=== PATIENT | male | born 1930 | race Caucasian/White ===

== ENCOUNTER 2018-06-05 14:37 | Outpatient (CLI) | payer MEDICARE ==
--- NOTE | 2018-06-05 15:30 | RAD ---
THREE VIEWS RIGHT SHOULDER: INDICATION: Right shoulder pain. COMPARISON: None. FINDINGS: There is narrowing of the acromiohumeral interval with postsurgical change of a prior rotator cuff re pair. There is mild AC joint osteoarthrosis. There are calcified granuloma within the right upper l obe. There is diffuse osteopenia. IMPRESSION: 1. Findings suspicious for rotator cuff insufficiency. 2. Suture anchors of the right humeral head consistent with prior rotator cuff repair. 3. Mild acromioclavicular joint osteoarthrosis. 4. Findings of prior granulomatous disease. POS: TPC
== END 2018-06-05 14:38 | disposition home or self-care (01) ==
LOC: BICRAD 14:37
PROVIDERS: ATTEND Family Medicine
DX: M25.511 Pain in right shoulder (principal); M19.011 Primary osteoarthritis, right shoulder
CPT/HCPCS: 36415; 82043; 83036; 84439; 84443; 84481; 84550; 85025

== ENCOUNTER 2019-02-24 12:14 | Inpatient (IN) | payer MEDICARE ==
[2019-02-24 13:36] LABS: #Monocytes 1.2 thou/uL (0.11-0.59); #Neutrophils 12.9 thou/uL (1.40-6.50); %Eosinophils 0.3 % (0.0-10.0); %Lymphocytes 6.5 % (21.0-51.0); %Monocytes 7.9 % (0.0-10.0); %Neutrophils 85.3 % (42.0-75.0); Hemoglobin 10.9 g/dL (14.0-18.0); Mean Corpuscular HGB CONC 33.5 g/dL (32.0-36.0); Mean Corpuscular Hemoglobin 33.8 pg (27.0-31.0); Mean Platelet Volume 7.9 fL (7.4-10.4); Platelet Count 249 thou/uL (130-400); RBC Distribution Width 12.7 % (11.5-14.5); Red Blood Cell (RBC) Count 3.23 mill/uL (4.70-6.10); White Blood Cell (WBC) Count 15.1 thou/uL (4.8-10.8)
--- NOTE | 2019-02-24 13:38 | RAD ---
RADIOGRAPH CHEST 1 VIEW: DATE: 02/24/2019 TIME: 1:31 PM HISTORY: 88-year-old male with anorexia COMPARISON: 06/22/2016 FINDINGS: New finding of almost total opacification of the right hemithoracic cavity, except for sparing of a s mall portion of the right lung apex. New finding of displacement of trachea, mediastinum, and heart to the left. Prominent interstitial markings in left mid and lower lung zones. Left lung apex clear. No pneumothorax visualized. IMPRESSION: Very large right pleural effusion displacing the heart and mediastinum to the left.
[2019-02-24 14:05] LABS: ALT (SGPT) Less than 7 U/L (8-55); AST (SGOT) 18 U/L (5-34); Alkaline Phosphatase 97 U/L (40-150); Anion Gap 13 mmol/L (10-20); BUN (Urea Nitrogen) 17 mg/dL (8.4-25.7); Bilirubin, Total 0.7 mg/dL (0.2-1.2); CK (CPK) 49 U/L (30-200); Calc. Creatinine Clearance 0 mL/min (70-130); Calcium 8.9 mg/dL (7.8-10.44); Carbon Dioxide 28 mmol/L (23-31); Chloride 91 mmol/L (98-107); Estimated GFR-MDRD Greater than 90; Globulin 2.7 g/dL (2.4-3.5); Glucose 163 mg/dL (83-110); Lipase Less than 4 U/L (8-78); Protein, Total 5.7 g/dL (5.8-8.1); Sodium 128 mmol/L (136-145)
[2019-02-24 14:47] LABS: Bilirubin Negative (Negative); Blood, Urine 2+ (Negative); Clarity Clear (Clear); Glucose, Urine (Dipstick) Normal (Negative); Leukocyte 250 Leu/uL (Negative); Nitrite Negative (Negative); Protein, Urine (Dipstick) 20 mg/dL (Neg-Trace); Squamous Epithelial 0-3 HPF (0-3); Urobilinogen Normal mg/dL (Less than 2); WBC/HPF 21-50 HPF (0-3)
[2019-02-24 14:54] LABS: Bacteria/HPF 1+ HPF (None Seen)
[2019-02-24] MEDS ORDERED: Furosemide 20 MG/2 ML VIAL ONE (15:43)
[2019-02-24] MEDS ORDERED: Nitroglycerin 2% Ointment 1 INCH/1 GM Packet ONE (15:43)
[2019-02-24] MEDS ORDERED: Heparin 1,000 UNITS/ML VIAL ONE (17:09)
--- NOTE | 2019-02-24 17:26 | RAD ---
Frontal radiograph chest 02/24/2019 5:01 PM COMPARISON: 02/24/2019 1:31 PM HISTORY: Evaluate chest following right-sided thoracentesis FINDINGS: No pneumothorax is noted on either side. There is dense opacity in the mid and lower right hemithorax, secondary to prominent pleural effusion with associated nonspecific parenchymal opacity. Pleural fluid has decreased since the prior examination consistent with interval right-sided thoracentesis. Questionable small nodules are noted within the left lung base laterally which could signify granulom lee ann or small pulmonary nodules. Granulomata are suspected within the right lung apex. IMPRESSION: Interval right-sided thoracentesis with no evidence for pneumothorax. Significant persist ent dense pleural and peripheral opacity within the right hemithorax.
[2019-02-24 17:53] LABS: Fluid, Triglycerides 20 mg/dL (Not Available); Pleural Fluid, Amylase Less than 30 U/L (Not Available); Pleural Fluid, Glucose 105 mg/dL; Pleural Fluid, LDH 555 U/L (Not Available); Pleural Fluid, Protein 3.8 g/dL
[2019-02-24 17:54] LABS: BF Color Red; Body Fluid Source Thoracentesis Fluid; Clarity Cloudy/Turbid (Clear); RBC Background Count 0.002; Tube # EDTA; WBC/Nucleated-Auto (BF) 1090 /cumm
[2019-02-24 17:55] LABS: RBC Count-Automated (BF) 84000 /cumm
[2019-02-24 18:49] LABS: BF Segmented Neutrophils 16 %; Cell Count Non Hematic 63 %; Lymphocytes 21 %
[2019-02-24] MEDS ORDERED: Acetaminophen 650 MG Suppository PR PRN (18:54)
[2019-02-24] MEDS ORDERED: Acetaminophen 325 MG TAB PO PRN (18:54)
[2019-02-24] MEDS ORDERED: Bisacodyl 5 MG TAB PO PRN (18:54)
[2019-02-24] MEDS ORDERED: Dextrose 5% in Water 1,000 ML IV PRN (19:44)
[2019-02-24] MEDS ORDERED: Dextrose 50% Abboject 50 ML SYRINGE SLOW IVP PRN (19:44)
--- NOTE | 2019-02-24 20:20 | HP ---
PRIMARY CARE PROVIDER: Dr. Mary Seals. CHIEF COMPLAINT: Generalized weakness. HISTORY OF PRESENT ILLNESS: Mr. Hernandez is a pleasant 88-year-old gentleman, who was seen at [facility] on February 24, 2019. He reports that over the last couple of weeks, he has been having difficulty urinating. He also reports weight gain. He denies any chest pain. He also reports shortness of breath and abdominal discomfort. He had a cough that was evaluated by his primary care provider 2 weeks ago. Today, he attempted to go to primary care provider's office for re-evaluation; however, he was unable to get into the car. 911 was called and the patient was brought to the emergency room. In the emergency room, the patient was found to have a large right-sided pleural effusion. He was referred to Hospitalist Service for admission. REVIEW OF SYSTEMS: All systems were reviewed and found to be negative except for the pertinent positives mentioned above. PAST MEDICAL HISTORY: Pneumonia, gout, hypothyroidism, esophageal stricture, hiatal hernia, benign prostate hypertrophy, dyslipidemia, hypertension, diabetes mellitus type 2. PAST SURGICAL HISTORY: Esophageal dilatation, cardiac stent, cholecystectomy, hernia repair, left rotator cuff repair. SOCIAL HISTORY: The patient denies tobacco use, alcohol use, or recreational drug use. FAMILY HISTORY: No family history of premature coronary artery disease. CODE STATUS: I discussed his code status. He is DNAR. ALLERGIES: ERYTHROMYCIN AND INFLUENZA VACCINE. CURRENT MEDICATIONS: Januvia 100 mg daily, benzonatate 100 mg every 8 hours as needed, allopurinol 100 mg daily, atorvastatin 10 mg daily. PHYSICAL EXAMINATION: GENERAL: Mr. Hernandez is awake and alert, not in acute distress. VITAL SIGNS: Blood pressure is 122/61, pulse 67, respiratory rate 18, and oxygen saturation 97% on room air. He is afebrile. EYES: No scleral icterus, no conjunctival pallor. ENT: Moist mucosal membranes. No oropharyngeal erythema or exudates. NECK: Supple, nontender. Trachea is midline. RESPIRATORY: Accessory muscles of breathing are not active. Chest wall movements are diminished over the right base. Breath sounds are absent over the right base, present on the left side. CARDIOVASCULAR: S1 and S2 are heard, regular. Peripheral pulses palpable. ABDOMEN: Soft, nontender. Bowel sounds are heard. NEUROLOGIC: Cranial nerves 2 through 12 intact. Deep tendon reflexes 2+, plantars downgoing bilaterally. SKIN: No rashes or subcutaneous nodules. PSYCHIATRIC: Normal mood, normal affect. The patient is oriented to person, place, and time. LABORATORY DATA: Mr. Hernandez's labs and investigations were reviewed. I reviewed his electrocardiogram, which shows sinus rhythm with first-degree AV block. I also reviewed his chest x-rays. Chest x-ray done at 1:16 p.m. showed a very large right pleural effusion, displacing the heart and the mediastinum to the left. Chest x-ray done at 4:38 p.m. showed no evidence for pneumothorax with interval right-sided thoracentesis. He has leukocytosis with 15,100 white cells, of which 85% are neutrophils; macrocytic anemia with hemoglobin 10.9; normal platelet count. Decreased sodium of 128, normal potassium, decreased albumin of 3.0. Unremarkable LFTs. Normal TSH. Normal cortisol. BNP mildly elevated at 118.7. Lactic acid is normal. Troponin I is less than 0.010. Urinalysis is positive for leukocyte esterase, negative for nitrite. ASSESSMENT AND PLAN: Mr. Hernandez is a pleasant 88-year-old gentleman, who was seen at [facility] on February 24, 2019. His problem list includes: 1. Generalized weakness: Appears to be secondary to a combination of large right-sided pleural effusion as well as urinary tract infection. He will be admitted to the hospital for further management. 2. Pleural effusion: The patient had thoracentesis by the bedside by Pulmonary and Critical Care Service. Follow labs for the pleural fluid. 3. Urinary tract infection: Start the patient on ceftriaxone, follow urine cultures. 4. Diabetes mellitus type 2: Start Accu-Cheks and insulin sliding scale. 5. Urinary retention: Urology Service has been consulted by emergency room physician. 6. Gout: Stable, continue allopurinol. 7. Dyslipidemia: Continue atorvastatin. Many thanks for allowing me to participate in your patient's care. Please feel free to contact me with any questions or concerns. LEVEL OF RISK: High. LEVEL OF COMPLEXITY: High. Job ID: [id number]
[2019-02-24] MEDS: cefTRIAXone\\ROCEPHIN 1 GM in Sodium Chloride 0.9% 100 ML IVPB SCH (21:05)
[2019-02-25] MEDS ORDERED: Benzonatate 100 MG CAP PO PRN (03:37)
[2019-02-25] MEDS ORDERED: Furosemide 40 MG TAB PO SCH (05:00)
[2019-02-25 07:02] LABS: #Eosinphils 0.1 thou/uL (0.0-0.7); #Lymphocytes 1.4 thou/uL (1.20-3.40); #Monocytes 1.4 thou/uL (0.11-0.59); #Neutrophils 15.5 thou/uL (1.40-6.50); %Basophils 0.2 % (0.0-1.0); %Eosinophils 0.4 % (0.0-10.0); %Lymphocytes 7.6 % (21.0-51.0); %Monocytes 7.7 % (0.0-10.0); Hemoglobin 9.3 g/dL (14.0-18.0); Mean Platelet Volume 8.1 fL (7.4-10.4); Platelet Count 239 thou/uL (130-400); RBC Distribution Width 12.7 % (11.5-14.5); Red Blood Cell (RBC) Count 2.73 mill/uL (4.70-6.10); White Blood Cell (WBC) Count 18.5 thou/uL (4.8-10.8)
[2019-02-25 07:14] LABS: Anion Gap 15 mmol/L (10-20); BUN (Urea Nitrogen) 15 mg/dL (8.4-25.7); Calc. Creatinine Clearance 69 mL/min (70-130); Calcium 8.1 mg/dL (7.8-10.44); Carbon Dioxide 24 mmol/L (23-31); Chloride 93 mmol/L (98-107); Estimated GFR-MDRD Greater than 90; Glucose 166 mg/dL (83-110); Sodium 128 mmol/L (136-145)
--- NOTE | 2019-02-25 07:16 | CON ---
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 He states that he has lost up to 150 pounds over the course of many years. He has never smoked. X-ray shows a large right pleural effusion and the reason for consult. He denies any previous history of pneumonia, TB, asthma. Denies any cough, wheezing, orthopnea, or PND. He sees a doctor locally, Dr. Seals. PAST MEDICAL HISTORY: Pertinent for otherwise diabetes, hypertension, hyperlipidemia, coronary artery disease, strictured esophagus, renal failure, incontinence. PAST SURGICAL HISTORY: Previous surgeries including previous endoscopy, stent, inguinal hernia surgery. MEDICATIONS: His medicine includes tramadol; B6; oxybutynin; Synthroid 125; Ismo; folic acid; Plavix, but he said he has quit taking that; Coreg; atorvastatin; aspirin. ALLERGIES: ERYTHROMYCIN. REVIEW OF SYSTEMS: Otherwise, 10-point negative. PHYSICAL EXAMINATION: GENERAL/VITAL SIGNS: He is a cachectic gentleman, whose sats are 98%, pulse 80, blood pressure , respiratory rate 18. CHEST: Reveal decreased breath sounds in the entire right lung. Left lung is unremarkable. CARDIAC: No gallops. No murmurs. ABDOMEN: Soft. EXTREMITIES: He got 2+ ankle edema. NEUROLOGIC: He is awake, alert, and responsive. LABORATORY STUDIES: Sodium is 128. His BNP is only 118. His urine shows UTI. X-ray; large pleural effusion. White count 15,000, H and H of 10 and 32, platelet count normal. IMPRESSION: 1. Massive pleural effusion. 2. Nonsmoker. 3. History of coronary artery disease with stent. 4. Hyponatremia. 5. Hypothyroidism. 6. Marked weight loss. PLAN: further recommendation after reviewing the results from the pleural effusion. Consultation note, 70 minutes, exclusive of the procedure thoracentesis. DESCRIPTION OF PROCEDURE: After informed consent, the patient is sitting upright in bed. The right posterior thorax was cleaned with chlorhexidine . A total of fluid was removed without difficulty. Pleural effusion was sent for appropriate studies including cytology and culture. Job ID: [id number]
--- NOTE | 2019-02-25 08:18 | RAD ---
EXAM: CHEST ONE VIEW HISTORY: Shortness of breath and lung crackles. Follow-up evaluation. COMPARISON: 02/24/2019 FINDINGS: There is a large right pleural effusion with parenchymal opacity seen within the right upper lung zon e and right suprahilar region with greater parenchymal opacity when compared to the prior exam. The right cardiac border is obscured. Calcified granulomata are seen in the left lung. There is suggestio n of a nodular density at the left lung base, but this may be related to overlying nipple shadow. There is no other interval change compared to prior exam. IMPRESSION: Large right pleural effusion occupying at least two thirds of the volume of the right hemithorax, and the pleural effusion does appear mildly increased from prior exam. In addition, there is a greater degree of parenchymal opacity within the right lung which may be related to atelectasis, but developi ng pneumonia is also a possibility. Underlying mass could not be excluded.
--- NOTE | 2019-02-25 09:46 | PRG ---
DATE OF SERVICE: 02/25/2019 SUBJECTIVE: This morning, he is better. He is still weak. OBJECTIVE: VITAL SIGNS: Blood pressure is 94/40, saturations are 100%, temperature is 98, pulse is 71, and respiratory rate is 18. CHEST: Decreased breath sounds, right lung. Left lung unremarkable. CARDIAC: Normal S1 and S2. No gallops. ABDOMEN: No masses. LABORATORY DATA: White count 18,000, H and H 9 and 28, and platelet count is normal. Sodium is still 128. Pleural effusion was an exudate. Protein was 3.8 and LDH 55. Awaiting cytology. IMPRESSION: Massive pleural effusion, status post thoracentesis, 2 liters of bloody effusion, still has a very large pleural effusion. PLAN: Repeat thoracentesis done. CT of the chest being ordered. Further recommendation thereafter. Job ID: [id number]
[2019-02-25] MEDS ORDERED: ISOVUE-370 76%-LOCM 1 ML ONE (10:49)
--- NOTE | 2019-02-25 10:56 | OP ---
DATE OF PROCEDURE: 02/25/2019 PROCEDURE PERFORMED: Thoracentesis. INDICATION: Massive pleural effusion. DESCRIPTION OF PROCEDURE: After informed consent from the patient, the right posterior thorax was cleaned with chlorhexidine. 1% lidocaine was infiltrated into the right 9th intercostal space in the posterior axillary line. Pleural cavity was entered and 20 mL of bloody effusion was removed, thereafter using an 8-Kinyarwanda catheter. A total of 2 L was removed without any difficulty. Pleural effusion sent for appropriate studies including cytology and culture. Please note if effusion remains significant, he is probably going to require a tunneled pleural catheter. Await results of cytology. Job ID: [id number]
[2019-02-25] MEDS: methylPREDNISolone Sod Succ 40 MG VIAL IVP SCH ×2 (11:10→17:17)
--- NOTE | 2019-02-25 11:13 | PDOC.HOSPP ---
- Subjective Encounter Date: 02/25/19 Encounter Time: 11:11 Subjective: slightly better post thoracentesis - Objective Vital Signs & Weight: Vital Signs (12 hours) Temp Pulse Resp BP Pulse Ox 02/25/19 11:04 97.1 F L 61 18 96/61 100 02/25/19 09:14 76 94/40 L 02/25/19 08:15 97.6 F 81 18 62/41 L 100 02/25/19 08:00 100 02/25/19 04:00 98.8 F 80 20 108/63 93 L 02/25/19 00:07 98.8 F 70 18 104/58 L 96 Weight Weight 151 lb 4 oz I&O: 02/24/19 02/25/19 02/26/19 06:59 06:59 06:59 Intake Total 600 Output Total 775 Balance -175 Result Diagrams: 02/25/19 06:46 02/25/19 06:46 Additional Labs: Accuchecks 02/25/19 02/24/19 04:53 19:59 POC Glucose 176 H 158 H ROS - Medication Medications: Active Medications Generic Name Dose Route Start Last Admin Trade Name Freq PRN Reason Stop Dose Admin Benzonatate 100 mg 02/25/19 03:37 02/25/19 04:10 Tessalon PO 100 mg TIDPRN PRN Administration Cough Ceftriaxone Sodium 1 gm/ 100 mls @ 200 mls/hr 02/24/19 20:00 02/24/19 21:05 Sodium Chloride IVPB 100 mls Q24HR SAVAGE Administration - Exam awake alert Neck: no JVD Heart: RRR, no murmur Respiratory - other findings: clear on left , dull to percussion on right Gastrointestinal: soft, non-tender, normal bowel sounds Extremities: no cyanosis Hosp A/P (1) Pleural effusion on right Code(s): J90 - PLEURAL EFFUSION, NOT ELSEWHERE CLASSIFIED Status: Acute (2) DM type 2 (diabetes mellitus, type 2) Status: Chronic Qualifiers: Diabetes mellitus oysterman insulin use: without care home use Diabetes mellitus complication status: without complication Qualified Code(s): E11.9 - Type 2 diabetes mellitus without complications (3) HTN (hypertension) Code(s): I10 - ESSENTIAL (PRIMARY) HYPERTENSION Status: Chronic Qualifiers: Hypertension type: essential hypertension Qualified Code(s): I10 - Essential (primary) hypertension (4) Hypothyroidism Code(s): E03.9 - HYPOTHYROIDISM, UNSPECIFIED Status: Chronic Qualifiers: Hypothyroidism type: unspecified Qualified Code(s): E03.9 - Hypothyroidism , unspecified - Plan post thoracentesis xculture , cytology pending discuss with pulmonology
--- NOTE | 2019-02-25 12:02 | CT ---
Exam: Chest CT with contrast Abdomen CT with contrast Pelvic CT with contrast HISTORY: Elevated white blood cell count. Elevated blood sugar. Cancer. Patient is retaining fluid. E valuate for pleural effusion. Correlation: None COMPARISON: None FINDINGS: Chest CT: Mediastinum: No mediastinal hematoma. There appears to be a necrotic subcarinal lymph node measuring 2.5 x 1.5 cm. Adjacent smaller necrotic subcarinal lymph node measuring 0.9 cm is noted. Aorta: No evidence of aneurysm or dissection. There is short segment moderate narrowing of the proxim al superior mesenteric artery. Heart: There are coronary artery calcifications. Small amount of pericardial fluid. Trachea and central bronchi: Patent Pleural spaces: Moderate right-sided pleural effusion. Small left-sided pleural effusion. Right lung: Patchy groundglass opacities along with alveolar and interstitial infiltrates involving t he right upper lobe, middle lobe and to lesser extent superior segment of the right lower lobe.. There is consolidation of the middle lobe and right lower lobe adjacent to the pleural effusion sugge sting atelectasis. Left lun to 4 mm nodules noted in the left upper lobe and left lower lobe. Largest nodule abuts th e major fissure measuring 4 mm. Subpleural lymph node may be present. There is a solid intraparenchymal nodule in the left lower lobe measuring 3 mm. Pneumothorax: None Abdomen CT: Gallbladder: Surgically absent Portal vein: Patent Liver: Appropriate enhancement. Spleen: Appropriate enhancement Pancreas: Extensive atrophy of the pancreas Adrenal glands: Appropriate enhancement Lymphadenopathy: No gastrohepatic, retrocrural or periportal lymphadenopathy Kidneys: Symmetric enhancement. Bilaterally no obstructive uropathy Mesentery: There is nonspecific stranding of the abdominal mesentery. Small amount of fluid in both p aracolic gutters. No mesenteric mass or lymphadenopathy. Alimentary canal: No evidence of bowel obstruction. Ileocecal junction is unremarkable. Normal calibe r appendix. Contrast and fecal material in a nondistended, nondilated colon. Pelvis CT: Villareal catheter decompresses the urinary bladder. Small amount of free fluid in the pelvis. No mass, l ymphadenopathy, or free air. Osseous structures:Dextrorotatory scoliosis of the lumbar spine. Multilevel vacuum disc phenomenon. Extensive edema involving the soft tissues, compatible with anasarca. IMPRESSION: 1. Moderate right and small left pleural effusion. Adjacent consolidation likely due to atelectasis. 2. Groundglass opacities in the right lung as described above. Correlate for edema or infiltrate. 3. Necrotic subcarinal lymph nodes are suspected 4. Atrophy of the pancreas 5. Anasarca Transcribed Date/Time: 02/25/2019 1:02 PM
[2019-02-25] MEDS: HumaLOG 300 UNITS/3 ML VIAL SC PRN (17:19)
[2019-02-25] MEDS: cefTRIAXone\\ROCEPHIN 1 GM in Sodium Chloride 0.9% 100 ML IVPB SCH (20:19)
[2019-02-26] MEDS: methylPREDNISolone Sod Succ 40 MG VIAL IVP SCH ×2 (00:17→05:51)
[2019-02-26 05:35] LABS: #Lymphocytes 0.7 thou/uL (1.20-3.40); #Monocytes 0.3 thou/uL (0.11-0.59); %Basophils 0.1 % (0.0-1.0); %Eosinophils 0.2 % (0.0-10.0); %Lymphocytes 4.4 % (21.0-51.0); %Neutrophils 93.3 % (42.0-75.0); Hemoglobin 6.9 g/dL (14.0-18.0); Mean Corpuscular HGB CONC 34.4 g/dL (32.0-36.0); Mean Corpuscular Hemoglobin 35.5 pg (27.0-31.0); Mean Platelet Volume 8.3 fL (7.4-10.4); Platelet Count 188 thou/uL (130-400); RBC Distribution Width 12.9 % (11.5-14.5); Red Blood Cell (RBC) Count 1.94 mill/uL (4.70-6.10)
[2019-02-26] MEDS: HumaLOG 300 UNITS/3 ML VIAL SC PRN ×3 (05:48→17:00)
[2019-02-26 05:54] LABS: Anion Gap 11 mmol/L (10-20); BUN (Urea Nitrogen) 17 mg/dL (8.4-25.7); Calc. Creatinine Clearance 75 mL/min (70-130); Calcium 7.8 mg/dL (7.8-10.44); Carbon Dioxide 29 mmol/L (23-31); Chloride 92 mmol/L (98-107); Estimated GFR-MDRD Greater than 90; Glucose 183 mg/dL (83-110); Potassium 3.6 mmol/L (3.5-5.1); Sodium 128 mmol/L (136-145)
[2019-02-26] MEDS: Finasteride 5 MG TAB PO SCH (07:46)
--- NOTE | 2019-02-26 07:48 | CON ---
DATE OF CONSULTATION: 02/25/2019 REASON FOR CONSULTATION: Urinary retention. REQUESTING PHYSICIAN: Dr. Burton Henriquez. HISTORY OF PRESENT ILLNESS: Mr. Hernandez is an 88-year-old male with past urologic history significant for BPH, who presented to [facility] on February 24, 2019. Over the past 2 weeks, he has had progressive voiding difficulty and reports urinary hesitancy and weak stream. He has history of BPH, on tamsulosin and finasteride. The patient attempted to go in his primary care office; however, he was unable to get into the car and therefore 911 was called and he was brought to the emergency room. The patient had a Villareal catheter placed, which took multiple attempts, but eventually was placed with an unknown residual urine. In the emergency department, he was found to have a large right-sided pleural effusion and underwent thoracocentesis for this. He was admitted to the Hospitalist Service and Urology has been consulted. The patient states that he has had a history of BPH for years. He takes tamsulosin and finasteride. He has seen urologist in the past, but it has been several years. No gross hematuria. No recurrent UTIs. No personal or family history of prostate cancer. No other complaints. REVIEW OF SYSTEMS: Full 12-point review of systems was performed and was negative other than that mentioned in HPI. PAST MEDICAL HISTORY: Pneumonia, gout, hypothyroidism, esophageal stricture, hiatal hernia, BPH, dyslipidemia, hypertension, type 2 diabetes mellitus. PAST SURGICAL HISTORY: Esophageal dilation, coronary stent, cholecystectomy, hernia repair, left rotator cuff repair. SOCIAL HISTORY: No alcohol, tobacco, or illicit drugs. FAMILY HISTORY: Noncontributory. ALLERGIES: ERYTHROMYCIN AND INFLUENZA VACCINE. MEDICATIONS: 1. Januvia. 2. Benzonatate. 3. Allopurinol. 4. Atorvastatin. PHYSICAL EXAMINATION: VITAL SIGNS: He is afebrile. Blood pressure 122/61, pulse 67, respirations 18, oxygen saturation 97% on room air. GENERAL: He is alert and oriented x3, in no apparent distress. HEENT: Normocephalic, atraumatic. NECK: Supple. No masses or lymphadenopathy. CARDIOVASCULAR: Regular rate and rhythm. PULMONARY: Breathing unlabored. ABDOMEN: Soft, nontender/nondistended. No masses or organomegaly. No suprapubic tenderness to palpation. No CVA tenderness. GENITOURINARY: Normal penis without concerning lesion. Villareal catheter is in place draining clear yellow urine. Scrotum is normal. Testes are palpably normal bilaterally other than mild atrophy. EXTREMITIES: Warm and well perfused. No edema. NEUROLOGIC: No focal deficits. LABORATORY DATA: White blood cell count 15.1, hemoglobin 10.9, hematocrit 32.7, platelets 249. Sodium 128, potassium 4.0, chloride 93, bicarb 24, BUN 15, creatinine 0.72. Urinalysis with trace ketones, 2+ blood, 7-10 red blood cells per high-power field, 21-50 white blood cells per high-power field, few bacteria. ASSESSMENT: 88-year-old male with history of benign prostatic hyperplasia and urinary retention. PLAN: I reviewed the natural history of urinary retention and BPH with the patient in detail. By report, the patient states he was previously on finasteride and tamsulosin. However of note, these are not currently on his medication list and it is unclear whether he has been taking these. Recommend starting both tamsulosin and finasteride, tamsulosin is 0.4 mg daily and finasteride is 5 mg daily. He should continue these as an outpatient. For now, the Villareal catheter should remain in place. He can follow up with Urology as an outpatient for a voiding trial and potential additional workup of his urinary retention as needed. Job ID: [id number]
[2019-02-26] MEDS ORDERED: predniSONE 20 MG TAB PO SCH (09:15)
--- NOTE | 2019-02-26 10:09 | PRG ---
DATE OF SERVICE: 02/26/2019 SUBJECTIVE: Keagan Hernandez this morning is awake, alert, and responsive. He is better, he is less short of breath. OBJECTIVE: VITAL SIGNS: Saturations are 965 on 1 L, respirations 20, temperature 97, blood pressure 90/42. CHEST: Decreased breath sounds without any wheezing. CARDIAC: Normal S1 and S2. No gallops. ABDOMEN: No masses. IMPRESSION: 1. Large bloody effusion, awaiting cytology. 2. Hyponatremia. 3. Severe deconditioning. 4. Anemia. PLAN: Once cytology results are back, we will more than likely consult Dr. Edgar for a pleural catheter placement Job ID: [id number] [facility]
[2019-02-26] MEDS: Amoxicillin/Potassium Clav 500 MG TAB PO SCH ×2 (10:15→20:37)
[2019-02-26 12:02] LABS: Hemoglobin 7.2 g/dL (14.0-18.0)
[2019-02-26 12:08] LABS: INR-International Normal Ratio 1.4; Prothrombin Time 16.9 SEC (12.0-14.7)
[2019-02-26 12:09] LABS: PTT 35.6 SEC (22.9-36.1)
--- NOTE | 2019-02-26 12:24 | PDOC.HOSPP ---
- Subjective Encounter Date: 02/26/19 Encounter Time: 12:22 Subjective: i'm fine - Objective Vital Signs & Weight: Vital Signs (12 hours) Temp Pulse Resp BP Pulse Ox 02/26/19 11:48 97.5 F L 73 20 103/58 L 90 L 02/26/19 08:00 97.9 F 70 20 90/42 L 94 L 02/26/19 04:00 98.1 F 66 18 91/56 L 93 L Weight Admit Weight 151 lb 4 oz Weight 151 lb 4 oz I&O: 02/25/19 02/26/19 02/27/19 06:59 06:59 06:59 Intake Total 600 1400 Output Total 775 850 Balance -175 550 Result Diagrams: 02/26/19 11:51 02/26/19 05:06 Additional Labs: Accuchecks 02/26/19 02/25/19 02/25/19 05:17 20:32 17:03 POC Glucose 236 H 212 H 260 H 02/25/19 12:03 POC Glucose 157 H ROS - Medication Medications: Active Medications Generic Name Dose Route Start Last Admin Trade Name Freq PRN Reason Stop Dose Admin Amoxicillin/Clavulanate Potassium 500 mg 02/26/19 09:00 02/26/19 10:15 Augmentin PO 03/03/19 09:01 500 mg Q12HR SAVAGE Administration Benzonatate 100 mg 02/25/19 03:37 02/25/19 04:10 Tessalon PO 100 mg TIDPRN PRN Administration Cough Bisacodyl 10 mg 02/24/19 18:54 02/26/19 05:59 Dulcolax PO 10 mg DAILYPRN PRN Administration Constipation Finasteride 5 mg 02/26/19 09:00 02/26/19 07:46 Proscar PO 5 mg DAILY SAVAGE Administration Insulin Human Lispro 0 units 02/24/19 19:44 02/26/19 05:48 Humalog SC 3 unit .MILD SLIDING SCALE PRN Administration Mild Correctional Scale - Exam Neck: no JVD Heart: RRR, no murmur Respiratory - other findings: dull left chest, clear on right Gastrointestinal: soft, non-tender, normal bowel sounds Extremities: no edema Hosp A/P (1) Pleural effusion on right Code(s): J90 - PLEURAL EFFUSION, NOT ELSEWHERE CLASSIFIED Status: Acute (2) DM type 2 (diabetes mellitus, type 2) Status: Chronic Qualifiers: Diabetes mellitus snf insulin use: without terminal operations manager use Diabetes mellitus complication status: without complication Qualified Code(s): E11.9 - Type 2 diabetes mellitus without complications (3) HTN (hypertension) Code(s): I10 - ESSENTIAL (PRIMARY) HYPERTENSION Status: Chronic Qualifiers: Hypertension type: essential hypertension Qualified Code(s): I10 - Essential (primary) hypertension (4) Hypothyroidism Code(s): E03.9 - HYPOTHYROIDISM, UNSPECIFIED Status: Chronic Qualifiers: Hypothyroidism type: unspecified Qualified Code(s): E03.9 - Hypothyroidism , unspecified (5) Anemia Code(s): D64.9 - ANEMIA, UNSPECIFIED Status: Acute Qualifiers: Anemia type: unspecified type Qualified Code(s): D64.9 - Anemia, unspecified - Plan transfuse 2 units PRBC planned surgery- Pleurex on left suspect occult malignancy- cytology pending
--- NOTE | 2019-02-26 13:52 | RAD ---
FRONTAL RADIOGRAPH CHEST: 02/26/19 COMPARISON: 02/25/19. HISTORY: Pleural effusion. FINDINGS: Small left pleural effusion noted. Nonspecific partial opacification of the inferior medial left lung base noted. There is dense opacity involving the middle and inferior third of the right hemithorax. This suggests a large right pleural effusion which has decreased in size when compared to the 02/25/19 examination. There is partial consolidation/collapse of right middle and right lower lobe. No evidence for pneumothorax on either side. IMPRESSION: Bilateral pleural and parenchymal opacity, nonspecific, right greater than left. Findings may be rela kevin to edema or infectious pneumonitis. POS: TPC
[2019-02-26] MEDS: Tamsulosin HCl 0.4 MG CAP PO SCH (20:37)
[2019-02-27 05:23] LABS: Anion Gap 10 mmol/L (10-20); BUN (Urea Nitrogen) 21 mg/dL (8.4-25.7); Calc. Creatinine Clearance 71 mL/min (70-130); Calcium 8.2 mg/dL (7.8-10.44); Carbon Dioxide 31 mmol/L (23-31); Chloride 93 mmol/L (98-107); Estimated GFR-MDRD Greater than 90; Glucose 258 mg/dL (83-110); Sodium 130 mmol/L (136-145)
[2019-02-27 06:21] LABS: Band 3 % (5-11); Hemoglobin 8.9 g/dL (14.0-18.0); Lymphocytes 3 % (21-51); MDiff Complete? YES; Mean Corpuscular HGB CONC 33.7 g/dL (32.0-36.0); Mean Platelet Volume 8.7 fL (7.4-10.4); Monocytes 6 % (0-10); Neutrophil 88 % (42-75); Platelet Count 170 thou/uL (130-400); RBC Distribution Width 17.1 % (11.5-14.5); Red Blood Cell (RBC) Count 2.68 mill/uL (4.70-6.10); White Blood Cell (WBC) Count 21.2 thou/uL (4.8-10.8)
[2019-02-27] MEDS ORDERED: predniSONE 20 MG TAB PO SCH (08:00)
--- NOTE | 2019-02-27 08:30 | PRG ---
DATE OF SERVICE: 02/27/2019 SUBJECTIVE: This morning, he is awake, alert, and responsive. He is less short of breath. presence of metastatic carcinoma. Oncology pleural catheter placed in today for recurrent pleural effusion. OBJECTIVE: VITAL SIGNS: Temperature 98, pulse 56, blood pressure 123/63, respiratory rate 18. CHEST: Decreased breath sounds. No wheezing. CARDIAC: Normal S1, S2. No gallops. ABDOMEN: No masses. LABORATORY DATA: Sodium 130. H and H of 8 and 26, white count 21,000. IMPRESSION: Metastatic carcinoma. Awaiting input from Oncology. Cachexia. PLAN: Pleural cath today. Supportive care. We will follow. Job ID: [id number]
[2019-02-27] MEDS: Finasteride 5 MG TAB PO SCH (09:41)
[2019-02-27] MEDS: Amoxicillin/Potassium Clav 500 MG TAB PO SCH ×2 (09:41→20:39)
[2019-02-27] MEDS: predniSONE 20 MG TAB PO SCH (09:41)
--- NOTE | 2019-02-27 12:13 | PDOC.HOSPP ---
- Subjective Encounter Date: 02/27/19 Encounter Time: 10:00 Subjective: Patient seen and examined. No new complaints. No overnight events - Objective Vital Signs & Weight: Vital Signs (12 hours) Temp Pulse Resp BP Pulse Ox 02/27/19 08:16 98 F 56 L 17 123/63 93 L 02/27/19 08:00 98 F 56 L 18 123/63 93 L 02/27/19 04:00 97.9 F 70 18 147/71 H 96 Weight Admit Weight 151 lb 4 oz Weight 151 lb 4 oz I&O: 02/26/19 02/27/19 02/28/19 06:59 06:59 06:59 Intake Total 1400 700 Output Total 850 750 Balance 550 -50 Result Diagrams: 02/27/19 04:42 02/27/19 04:42 Additional Labs: Accuchecks 02/27/19 02/26/19 02/26/19 04:13 20:43 16:36 POC Glucose 282 H 325 H 411 H 02/26/19 11:54 POC Glucose 315 H ROS - Review of Systems Constitutional: reports: weakness. denies: fever, chills, sweats, malaise, other Respiratory: denies: cough, dry, shortness of breath, hemoptysis, SOB with excertion, pleuritic pain, sputum, wheezing, other Cardiovascular: denies: chest pain, palpitations, orthopnea, paroxysmal noc. dyspnea, edema, light headedness, other Gastrointestinal: denies: nausea, vomitting, abdominal pain, diarrhea, constipation, melena, hematochezia, other Genitourinary: denies: dysuria, frequency, incontinence, hematuria, retention, other - Medication Medications: Active Medications Generic Name Dose Route Start Last Admin Trade Name Freq PRN Reason Stop Dose Admin Amoxicillin/Clavulanate Potassium 500 mg 02/26/19 09:00 02/27/19 09:41 Augmentin PO 03/03/19 09:01 Not Given Q12HR SAVAGE Benzonatate 100 mg 02/25/19 03:37 02/25/19 04:10 Tessalon PO 100 mg TIDPRN PRN Administration Cough Bisacodyl 10 mg 02/24/19 18:54 02/26/19 05:59 Dulcolax PO 10 mg DAILYPRN PRN Administration Constipation Finasteride 5 mg 02/26/19 09:00 02/27/19 09:41 Proscar PO Not Given DAILY SAVAGE Insulin Human Lispro 0 units 02/24/19 19:44 02/26/19 17:00 Humalog SC 6 unit .MILD SLIDING SCALE PRN Administration Mild Correctional Scale Prednisone 20 mg 02/27/19 08:00 02/27/19 09:41 Prednisone PO Not Given QAM-WM SAVAGE Tamsulosin HCl 0.4 mg 02/26/19 21:00 02/26/19 20:37 Flomax PO 0.4 mg HS SAVAGE Administration - Exam NAD, awake alert Eye: PERRL, anicteric sclera ENT: normocephalic atraumatic, no oropharyngeal lesions Neck: supple, symmetric, no JVD Heart: RRR, no murmur Respiratory: no wheezes, no rales Gastrointestinal: soft, non-tender, non-distended Extremities: no cyanosis, no clubbing Skin: normal turgor, no lesions Neurological: CN's grossly intact, normal sensation to touch Musculoskeletal: normal tone, normal strength Hosp A/P (1) Pleural effusion on right Code(s): J90 - PLEURAL EFFUSION, NOT ELSEWHERE CLASSIFIED Status: Acute (2) Metastatic cancer Code(s): C79.9 - SECONDARY MALIGNANT NEOPLASM OF UNSPECIFIED SITE Status: Acute (3) Urinary retention due to benign prostatic hyperplasia Code(s): N40.1 - BENIGN PROSTATIC HYPERPLASIA WITH LOWER URINARY TRACT SYMP; R33.8 - OTHER RETENTION OF URINE Status: Acute (4) Anemia Code(s): D64.9 - ANEMIA, UNSPECIFIED Status: Chronic Qualifiers: Anemia type: unspecified type Qualified Code(s): D64.9 - Anemia, unspecified (5) DM type 2 (diabetes mellitus, type 2) Status: Chronic Qualifiers: Diabetes mellitus senior living insulin use: without senior living use Diabetes mellitus complication status: without complication Qualified Code(s): E11.9 - Type 2 diabetes mellitus without complications (6) HTN (hypertension) Code(s): I10 - ESSENTIAL (PRIMARY) HYPERTENSION Status: Chronic Qualifiers: Hypertension type: essential hypertension Qualified Code(s): I10 - Essential (primary) hypertension (7) Hypothyroidism Code(s): E03.9 - HYPOTHYROIDISM, UNSPECIFIED Status: Chronic Qualifiers: Hypothyroidism type: unspecified Qualified Code(s): E03.9 - Hypothyroidism , unspecified - Plan old records reviewed/req today pleurex catheter placement oncology will see medication reviewed as below symptomatic treatment
[2019-02-27] MEDS ORDERED: Bupivacaine/Epinephrine 0.25% 30 ML VIAL ONE (12:48)
[2019-02-27] MEDS ORDERED: Fentanyl 100 MCG/2 ML VIAL ONE (12:57)
[2019-02-27] MEDS ORDERED: Lidocaine 1% PF 5 ML VIAL ONE (14:01)
[2019-02-27] MEDS ORDERED: PROPOFOL 200 MG/20 ML VIAL ONE (14:01)
[2019-02-27] MEDS ORDERED: Fentanyl 100 MCG/2 ML VIAL SLOW IVP PRN (14:23)
[2019-02-27] MEDS ORDERED: Ibuprofen 600 MG TAB PO PRN (14:23)
--- NOTE | 2019-02-27 14:39 | RAD ---
EXAM: CHEST ONE VIEW HISTORY: Pleurx catheter placement. COMPARISON: 02/26/2019 FINDINGS: There is a tunneled pleural catheter seen at the right lung base. Moderate size right pleural effusio n and associated volume loss are present. The right pleural effusion has decreased compared to the prior exam. Small left pleural effusion is present with patchy density left lung base which may be re lated to atelectasis. There is increased density at the medial left lung base probably related to pleural fluid, with associated volume loss. Calcified granulomata are seen at the right lung apex wit h associated pleural thickening. There are nodular densities seen at the left lung base, but this was also present on recent CT thorax on 02/25/2019. Cardiac silhouette is partially obscured on the right. Vascular location are seen thoracic aorta. An chors overlie the right humeral head. No other interval change. IMPRESSION: 1. Interval placement of a tunneled right pleural catheter with decrease in right pleural effusion, b ut a moderate pleural effusion and atelectasis persists. 2. Increased density left lung base probably related to combination of left pleural effusion and atel ectasis. Pneumonitis cannot be entirely excluded. 3. Nodular densities left lung base also seen on recent CT exam.
[2019-02-27] MEDS: HumaLOG 300 UNITS/3 ML VIAL SC PRN (15:25)
--- NOTE | 2019-02-27 16:23 | PQF ---
CRISTI DELEON, OZZY ERVIN MD [id number] CLINICAL DOCUMENTATION IMPROVEMENT CLARIFICATION FORM: ICD-10 Updated PLEASE DO AN ADDENDUM TO THE PROGRESS NOTE WITH ANY DOCUMENTATION UPDATES OR ADDITIONS AND CARRY THROUGH TO DC SUMMARY. THANK YOU. DATE: 02/27/19 ATTN:DR. Ethel HELTON Please exercise your independent, professional judgment in responding to the clarification form. Clinical indicators are provided on the bottom of this form for your review. Please check appropriate box(s): [ ] Acute blood loss anemia [ ] Acute blood loss anemia D/T neoplasm [ x ] Other diagnosis _chronic disease anemia, unable to explain acute drop [ ] Unable to determine In addition, please specify: Present on Admission (POA): [x ] Yes [ ] No [ ] Unable to determine For continuity of documentation, please document condition throughout progress notes and discharge summary. Thank You. CLINICAL INDICATORS - SIGNS / SYMPTOMS / LABS 02/25 HEMOGLOBIN 9.3 02/26 HEMOGLOBIN 6.9 > 7.2 02/27 HEMOGLOBIN 8.9 02/26 TRANSFUSION X 2 LEUK-REDUCED RBC 02/26 PN (COLMENARES) A/P : 5). ANEMIA, UNSPECIFIED, STATUS ACUTE PLAN- TRANSFUSE 2 UNITS PRBX 02/27 PN (DANIE) A/P: 4) ANEMIA UNSPECIFIED, STATUS CHRONIC RISK: DX: METASTATIC CARCINOMA (URIBE) ADVANCED AGE (88) TREATMENTS: TRANSFUSIONS X 2 SERIAL LABS THANK YOU! YOSELIN (This form is maintained as a part of the permanent medical record) 2014 [facility], [employer]. All Rights Reserved [email or web address] [phone] MTDD
[2019-02-27] MEDS: Tamsulosin HCl 0.4 MG CAP PO SCH (20:39)
--- NOTE | 2019-02-27 22:54 | CON ---
DATE OF CONSULTATION: REASON FOR CONSULT: Metastatic carcinoma. HISTORY OF PRESENT ILLNESS: Mr. Hernandez is a pleasant 88-year-old gentleman who presented to the emergency room on February 24 with shortness of breath and cough. He was noted to have a large right-sided pleural effusion. He was seen by Dr. Olmstead and a thoracentesis was performed. Cytology returned metastatic carcinoma. The patient underwent a chest abdomen and pelvis CT, which showed the right pleural effusion and a small left pleural effusion. There was a necrotic subcarinal lymph node measuring 2.5 x 1.5 cm. There is also adjacent small necrotic subcarinal lymph node measuring 0.9 cm. There were no other masses noted. The patient states he lives with his daughter and son-in-law. He is mostly independent and able to care for himself. He denies any history of smoking. The patient was seen in the preop holding area as he is getting a PleurX cath placed. PAST MEDICAL HISTORY: 1. Gout. 2. Hypothyroidism. 3. Esophageal stricture. 4. Hiatal hernia. 5. BPH. 6. Dyslipidemia. 7. Hypertension. 8. Diabetes mellitus 2. PAST SURGICAL HISTORY: 1. Esophageal dilation. 2. Cardiac stent. 3. Cholecystectomy. 4. Hernia repair. 5. Rotator cuff repair. ALLERGIES: ERYTHROMYCIN AND INFLUENZA VACCINE. HOME MEDICATIONS: 1. Zyloprim 100 mg daily. 2. Avastin daily. 3. Coreg 3.125 daily. 4. Iron daily. 5. Imdur ER 30 mg daily. 6. Synthroid 125 mcg daily. 7. Ditropan XL daily. 8. Januvia daily. 9. Flomax daily. 10. Demadex b.i.d. FAMILY HISTORY: Noncontributory. SOCIAL HISTORY: , lives with his daughter. No alcohol, tobacco, or illicit drug use. REVIEW OF SYSTEMS: A 10-point review of systems is negative except for noted in HPI. PHYSICAL EXAMINATION: VITAL SIGNS: Temperature is 97.9, pulse is 65, respiratory rate 18, BP is 95/52. He is 95% on room air. GENERAL: This is a thin elderly gentleman in no acute distress. HEENT: Normocephalic, atraumatic. Pupils are equal and reactive to light. NECK: Supple. CV: Regular rate and rhythm. LUNGS: Clear anterior. ABDOMEN: Soft and nontender. There is no organomegaly. Bowel sounds are positive. EXTREMITIES: No clubbing, cyanosis, or edema. 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 HEMATOLOGICAL: No petechiae or purpura. NEUROLOGICAL: Nonfocal. PSYCHOLOGIC: He is alert, oriented and appropriate. PERTINENT LABORATORY DATA AND X-RAYS: Current WBCs are 21.2, hemoglobin 8.9, hematocrit 26.2, platelet count is 170,000, 88% neutrophils, 3% bands, 3% lymphocytes. PT 16.9, INR is 1.4, and PTT is 35.6. Sodium 130, potassium 4.0, chloride 93, CO2 is 31, BUN is 21, creatinine 0.70, calcium is 8.2, bilirubin 0.7, AST is 18, ALT is less than 7, and alkaline phosphatase is 97. Creatine kinase is 49. Troponin is negative. BNP is 118. Serum total protein is 5.7, albumin 3.0, globulin 2.7. Radiology per HPI. ASSESSMENT: 1. Metastatic carcinoma. 2. Malignant pleural effusion. DISCUSSION: The patient has no evidence of disease except for his pleural effusion and small subcarinal lymph nodes. Plan to check a PDL1 mutation on cytology and if positive patient would be a candidate for a well-tolerated immunotherapy. I do not believe, he is a candidate for chemotherapy and in fact, he has agreed that he would not want to seek treatment with chemo. Planned PleurX cath today. Hopefully, he can be discharged home tomorrow to follow up in the clinic next week for results of PD1 mutation. Case has been discussed with Dr. Carpenter. I did try to call his daughter, Zakiya, and left a message with her, but she was unavailable. We will try to speak with her tomorrow. Thank you for the consult. Job ID: [id number]
[2019-02-28 06:02] LABS: #Eosinphils 0.1 thou/uL (0.0-0.7); #Lymphocytes 1.4 thou/uL (1.20-3.40); #Monocytes 1.6 thou/uL (0.11-0.59); #Neutrophils 13.2 thou/uL (1.40-6.50); %Eosinophils 0.4 % (0.0-10.0); %Lymphocytes 8.7 % (21.0-51.0); %Monocytes 9.9 % (0.0-10.0); %Neutrophils 81.1 % (42.0-75.0); Hemoglobin 8.2 g/dL (14.0-18.0); Mean Corpuscular HGB CONC 33.9 g/dL (32.0-36.0); Mean Corpuscular Hemoglobin 33.4 pg (27.0-31.0); Mean Corpuscular Volume 98.5 fL (78.0-98.0); Mean Platelet Volume 8.2 fL (7.4-10.4); Platelet Count 157 thou/uL (130-400); RBC Distribution Width 16.5 % (11.5-14.5); Red Blood Cell (RBC) Count 2.44 mill/uL (4.70-6.10); White Blood Cell (WBC) Count 16.3 thou/uL (4.8-10.8)
[2019-02-28] MEDS: HumaLOG 300 UNITS/3 ML VIAL SC PRN ×3 (06:15→20:23)
[2019-02-28 06:29] LABS: Anion Gap 9 mmol/L (10-20); BUN (Urea Nitrogen) 16 mg/dL (8.4-25.7); Calc. Creatinine Clearance 85 mL/min (70-130); Calcium 7.8 mg/dL (7.8-10.44); Carbon Dioxide 30 mmol/L (23-31); Chloride 95 mmol/L (98-107); Estimated GFR-MDRD Greater than 90; Glucose 172 mg/dL (83-110); Potassium 3.9 mmol/L (3.5-5.1); Sodium 130 mmol/L (136-145)
[2019-02-28] MEDS ORDERED: HYDROcodone/Acetaminophen 5/325 mg Tablet PO PRN (08:24)
[2019-02-28] MEDS ORDERED: Loperamide HCl 2 MG CAP PO PRN (08:24)
[2019-02-28] MEDS ORDERED: Artificial Tears 18 DROP/0.9 ML EA EYE PRN (08:24)
[2019-02-28] MEDS ORDERED: hydrALAZINE 20 MG/ML VIAL SLOW IVP PRN (08:24)
[2019-02-28] MEDS ORDERED: Bisacodyl 10 MG SUPP PR PRN (08:24)
[2019-02-28] MEDS ORDERED: Loratadine 10 MG TAB PO PRN (08:24)
[2019-02-28] MEDS ORDERED: Ondansetron PF 4 MG/2 ML Vial IVP PRN (08:24)
[2019-02-28] MEDS ORDERED: Cepastat Lozenges 1 LOZ PO PRN (08:24)
[2019-02-28] MEDS ORDERED: Ondansetron ODT 4 MG TAB PO PRN (08:24)
[2019-02-28] MEDS ORDERED: Sodium Chloride 0.65% Nasal 44 ML BOT EA NARE PRN (08:24)
[2019-02-28] MEDS ORDERED: Diabetic Tussin 200 MG/10 ML UDCUP PO PRN (08:24)
[2019-02-28] MEDS ORDERED: Calcium Carbonate 500 MG ChewTAB PO PRN (08:24)
[2019-02-28] MEDS ORDERED: Zolpidem Tartrate 5 MG TAB PO PRN (08:24)
[2019-02-28] MEDS ORDERED: Senokot S 8.6-50 MG TAB PO PRN (08:24)
[2019-02-28] MEDS: Amoxicillin/Potassium Clav 500 MG TAB PO SCH ×2 (09:09→20:22)
[2019-02-28] MEDS: Finasteride 5 MG TAB PO SCH (09:09)
[2019-02-28] MEDS: predniSONE 20 MG TAB PO SCH (09:09)
[2019-02-28] MEDS ORDERED: Oxybutynin 5 MG TAB PO SCH (10:45)
[2019-02-28] MEDS ORDERED: Levothyroxine Sodium 125 MCG TAB PO SCH (10:45)
--- NOTE | 2019-02-28 11:17 | PRG ---
DATE OF SERVICE: 02/28/2019 SUBJECTIVE: This morning, he is better, less short of breath. He has a pleural catheter placed in. OBJECTIVE: VITAL SIGNS: Saturations %, temperature 98, pulse 73, blood pressure 103/47. CHEST: Decreased breath sounds. No wheezing. CARDIAC: Normal S1, S2. No gallops. ABDOMEN: No masses. IMPRESSION: 1. Metastatic lung cancer. 2. Pleural effusion. 3. Advanced age. 4. Do not resuscitate. PLAN: Await input from Oncology. Supportive care and PT. We will follow. Job ID: [id number]
[2019-02-28] MEDS: guaiFENesin ER 600 MG TAB PO SCH ×2 (11:19→20:23)
[2019-02-28] MEDS: Atorvastatin Calcium 10 MG TAB PO SCH (11:19)
[2019-02-28] MEDS: Carvedilol 3.125 MG TAB PO SCH (11:20)
[2019-02-28] MEDS: Tamsulosin HCl 0.4 MG CAP PO SCH ×2 (11:20→20:23)
[2019-02-28] MEDS: Isosorbide Mononitrate (ER) 30 MG TAB PO SCH (11:20)
[2019-02-28] MEDS: Ferrous Sulfate 325 MG TAB PO SCH (11:20)
[2019-02-28] MEDS: Alogliptin 25 MG TAB PO SCH (11:20)
[2019-02-28] MEDS: Allopurinol 100 MG TAB PO SCH (11:20)
--- NOTE | 2019-02-28 12:51 | PDOC.HOSPP ---
- Subjective Encounter Date: 02/28/19 Encounter Time: 10:00 Subjective: Patient seen and examined. No new complaints. No overnight events - Objective Vital Signs & Weight: Vital Signs (12 hours) Temp Pulse Resp BP Pulse Ox 02/28/19 08:00 98.6 F 73 18 103/47 L 91 L 02/28/19 04:00 98.5 F 70 20 93/50 L 97 Weight Admit Weight 151 lb 4 oz Weight 151 lb 4 oz I&O: 02/27/19 02/28/19 03/01/19 06:59 06:59 06:59 Intake Total 700 Output Total 750 650 Balance -50 -650 Result Diagrams: 02/28/19 05:50 02/28/19 05:50 Additional Labs: Accuchecks 02/28/19 02/28/19 02/27/19 11:42 05:05 20:27 POC Glucose 260 H 203 H 272 H 02/27/19 15:26 POC Glucose 213 H ROS - Review of Systems Eyes: denies: pain, vision change, conjunctivae inflammation, eyelid inflammation, redness, other ENT: denies: ear pain, ear discharge, nose pain, nose discharge, nose congestion , mouth pain, mouth swelling, throat pain, throat swelling, other Respiratory: denies: cough, dry, shortness of breath, hemoptysis, SOB with excertion, pleuritic pain, sputum, wheezing, other Cardiovascular: denies: chest pain, palpitations, orthopnea, paroxysmal noc. dyspnea, edema, light headedness, other Gastrointestinal: denies: nausea, vomitting, abdominal pain, diarrhea, constipation, melena, hematochezia, other Genitourinary: denies: dysuria, frequency, incontinence, hematuria, retention, other Musculoskeletal: denies: neck pain, shoulder pain, arm pain, back pain, hand pain, leg pain, foot pain, other - Medication Medications: Active Medications Generic Name Dose Route Start Last Admin Trade Name Freq PRN Reason Stop Dose Admin Allopurinol 100 mg 02/28/19 09:00 02/28/19 11:20 Zyloprim PO 100 mg DAILY SAVAGE Administration Alogliptin Benzoate 25 mg 02/28/19 09:00 02/28/19 11:20 Alogliptin PO 25 mg DAILY SAVAGE Administration Amoxicillin/Clavulanate Potassium 500 mg 02/26/19 09:00 02/28/19 09:09 Augmentin PO 03/03/19 09:01 500 mg Q12HR SAVAGE Administration Atorvastatin Calcium 10 mg 02/28/19 09:00 02/28/19 11:19 Lipitor PO 10 mg DAILY SAVAGE Administration Benzonatate 100 mg 02/25/19 03:37 02/25/19 04:10 Tessalon PO 100 mg TIDPRN PRN Administration Cough Bisacodyl 10 mg 02/24/19 18:54 02/26/19 05:59 Dulcolax PO 10 mg DAILYPRN PRN Administration Constipation Carvedilol 3.125 mg 02/28/19 09:00 02/28/19 11:20 Coreg PO 3.125 mg DAILY SAVAGE Administration Ferrous Sulfate 325 mg 02/28/19 09:00 02/28/19 11:20 Feosol PO 325 mg DAILY SAVAGE Administration Finasteride 5 mg 02/26/19 09:00 02/28/19 09:09 Proscar PO 5 mg DAILY SAVAGE Administration Guaifenesin 600 mg 02/28/19 09:00 02/28/19 11:19 Mucinex PO 600 mg BID SAVAGE Administration Insulin Human Lispro 0 units 02/24/19 19:44 02/28/19 06:15 Humalog SC 3 unit .MILD SLIDING SCALE PRN Administration Mild Correctional Scale Isosorbide Mononitrate 30 mg 02/28/19 09:00 02/28/19 11:20 Imdur Er PO 30 mg DAILY SAVAGE Administration Prednisone 20 mg 02/27/19 08:00 02/28/19 09:09 Prednisone PO 20 mg QAM-WM SAVAGE Administration Tamsulosin HCl 0.4 mg 02/26/19 21:00 02/27/19 20:39 Flomax PO 0.4 mg HS SAVAGE Administration Tamsulosin HCl 0.4 mg 02/28/19 09:00 02/28/19 11:20 Flomax PO Not Given DAILY SAVAGE - Exam NAD, awake alert Eye: PERRL, anicteric sclera ENT: normocephalic atraumatic, no oropharyngeal lesions Neck: supple, symmetric, no JVD, no thyromegaly Heart: RRR, no murmur, no gallops, no rubs Respiratory: CTAB, no wheezes, no rales, no ronchi Respiratory - other findings: pleurex catheter on right side Gastrointestinal: soft, non-tender, non-distended Extremities: no cyanosis, no clubbing, no edema Skin: normal turgor, no lesions, no rashes Neurological: CN's grossly intact, normal sensation to touch, no focal deficits Musculoskeletal: normal tone, normal strength Psychiatric: normal affect, normal behavior Hosp A/P (1) Pleural effusion on right Code(s): J90 - PLEURAL EFFUSION, NOT ELSEWHERE CLASSIFIED Status: Acute (2) Metastatic cancer Code(s): C79.9 - SECONDARY MALIGNANT NEOPLASM OF UNSPECIFIED SITE Status: Acute (3) Urinary retention due to benign prostatic hyperplasia Code(s): N40.1 - BENIGN PROSTATIC HYPERPLASIA WITH LOWER URINARY TRACT SYMP; R33.8 - OTHER RETENTION OF URINE Status: Acute (4) Anemia Code(s): D64.9 - ANEMIA, UNSPECIFIED Status: Chronic Qualifiers: Anemia type: unspecified type Qualified Code(s): D64.9 - Anemia, unspecified (5) DM type 2 (diabetes mellitus, type 2) Status: Chronic Qualifiers: Diabetes mellitus residential insulin use: without warranty manager use Diabetes mellitus complication status: without complication Qualified Code(s): E11.9 - Type 2 diabetes mellitus without complications (6) HTN (hypertension) Code(s): I10 - ESSENTIAL (PRIMARY) HYPERTENSION Status: Chronic Qualifiers: Hypertension type: essential hypertension Qualified Code(s): I10 - Essential (primary) hypertension (7) Hypothyroidism Code(s): E03.9 - HYPOTHYROIDISM, UNSPECIFIED Status: Chronic Qualifiers: Hypothyroidism type: unspecified Qualified Code(s): E03.9 - Hypothyroidism , unspecified (8) Hyponatremia Code(s): E87.1 - HYPO-OSMOLALITY AND HYPONATREMIA Status: Acute (9) BPH (benign prostatic hyperplasia) Code(s): N40.0 - BENIGN PROSTATIC HYPERPLASIA WITHOUT LOWER URINRY TRACT SYMP Status: Chronic (10) Dyslipidemia Code(s): E78.5 - HYPERLIPIDEMIA, UNSPECIFIED Status: Chronic (11) Gout Code(s): M10.9 - GOUT, UNSPECIFIED Status: Chronic - Plan old records reviewed/req, PT/OT, licensed social worker medication reviewed as above symptomatic treatment case maker for discharge planning oncology recommendation appreciated, immunotherapy based on send out result ? need placement
[2019-02-28 15:40] VITALS: BMI 25.4
[2019-03-01] MEDS: Levothyroxine Sodium 125 MCG TAB PO SCH (06:20)
[2019-03-01] MEDS: Allopurinol 100 MG TAB PO SCH (09:00)
[2019-03-01] MEDS: predniSONE 20 MG TAB PO SCH (09:00)
[2019-03-01] MEDS: Alogliptin 25 MG TAB PO SCH (09:02)
[2019-03-01] MEDS: Amoxicillin/Potassium Clav 500 MG TAB PO SCH ×2 (09:02→20:44)
[2019-03-01] MEDS: guaiFENesin ER 600 MG TAB PO SCH ×2 (09:02→20:44)
[2019-03-01] MEDS: Carvedilol 3.125 MG TAB PO SCH (09:02)
[2019-03-01] MEDS: Finasteride 5 MG TAB PO SCH (09:03)
[2019-03-01] MEDS: Oxybutynin 5 MG TAB PO SCH (09:04)
[2019-03-01] MEDS: Ferrous Sulfate 325 MG TAB PO SCH (09:05)
[2019-03-01] MEDS: Atorvastatin Calcium 10 MG TAB PO SCH (09:05)
[2019-03-01] MEDS: Tamsulosin HCl 0.4 MG CAP PO SCH ×2 (09:06→20:44)
[2019-03-01] MEDS: Isosorbide Mononitrate (ER) 30 MG TAB PO SCH (09:06)
--- NOTE | 2019-03-01 12:18 | PRG ---
DATE OF SERVICE: 03/01/2019 SUBJECTIVE: This morning, he is better. Less short of breath. Less cough. OBJECTIVE: VITAL SIGNS: Blood pressure is 107/52, saturations 100%, , respirations 16. CHEST: No wheezing or crackles. CARDIAC: Normal S1 and S2. No gallops. ABDOMEN: No masses. ASSESSMENT: 1. Metastatic cancer. 2. Severe deconditioning. PLAN: Awaiting placement. Input from Oncology. We will follow. Job ID: [id number]
--- NOTE | 2019-03-01 16:24 | PDOC.HOSPP ---
- Subjective Subjective: Seen and examined. In good spirits. Patient states that he had a "twinge" where his pleurX cath is, though he states it was not painfull. Breathing much better since catheter in position and fluid removed. Patient wants to go to rehab. - Objective Vital Signs & Weight: Vital Signs (12 hours) Temp Pulse Resp BP Pulse Ox 03/01/19 08:00 100 03/01/19 07:09 98.4 F 59 L 16 107/53 L 100 Weight Admit Weight 151 lb 4 oz Weight 148 lb 8 oz I&O: 02/28/19 03/01/19 03/02/19 06:59 06:59 06:59 Intake Total 800 Output Total 650 550 Balance -650 250 Result Diagrams: 02/28/19 05:50 02/28/19 05:50 Additional Labs: Accuchecks 03/01/19 03/01/19 02/28/19 11:30 06:18 19:59 POC Glucose 177 H 167 H 298 H 02/28/19 16:06 POC Glucose 248 H ROS - Medication Medications: Active Medications Generic Name Dose Route Start Last Admin Trade Name Freq PRN Reason Stop Dose Admin Allopurinol 100 mg 02/28/19 09:00 03/01/19 09:00 Zyloprim PO 100 mg DAILY SAVAGE Administration Alogliptin Benzoate 25 mg 02/28/19 09:00 03/01/19 09:02 Alogliptin PO 25 mg DAILY SAVAGE Administration Amoxicillin/Clavulanate Potassium 500 mg 02/26/19 09:00 03/01/19 09:02 Augmentin PO 03/03/19 09:01 500 mg Q12HR SAVAGE Administration Atorvastatin Calcium 10 mg 02/28/19 09:00 03/01/19 09:05 Lipitor PO 10 mg DAILY SAVAGE Administration Benzonatate 100 mg 02/25/19 03:37 02/25/19 04:10 Tessalon PO 100 mg TIDPRN PRN Administration Cough Bisacodyl 10 mg 02/24/19 18:54 02/26/19 05:59 Dulcolax PO 10 mg DAILYPRN PRN Administration Constipation Carvedilol 3.125 mg 02/28/19 09:00 03/01/19 09:02 Coreg PO 3.125 mg DAILY SAVAGE Administration Ferrous Sulfate 325 mg 02/28/19 09:00 03/01/19 09:05 Feosol PO 325 mg DAILY SAVAGE Administration Finasteride 5 mg 02/26/19 09:00 03/01/19 09:03 Proscar PO 5 mg DAILY SAVAGE Administration Guaifenesin 600 mg 02/28/19 09:00 03/01/19 09:02 Mucinex PO 600 mg BID SAVAGE Administration Insulin Human Lispro 0 units 02/24/19 19:44 02/28/19 20:23 Humalog SC 4 unit .MILD SLIDING SCALE PRN Administration Mild Correctional Scale Isosorbide Mononitrate 30 mg 02/28/19 09:00 03/01/19 09:06 Imdur Er PO Not Given DAILY SAVAGE Levothyroxine Sodium 125 mcg 03/01/19 06:00 03/01/19 06:20 Synthroid PO 125 mcg 0600 SAVAGE Administration Oxybutynin Chloride 10 mg 03/01/19 09:00 03/01/19 09:04 Ditropan PO 10 mg DAILY SAVAGE Administration Prednisone 20 mg 02/27/19 08:00 03/01/19 09:00 Prednisone PO 20 mg QAM-WM SAVAGE Administration Tamsulosin HCl 0.4 mg 02/26/19 21:00 02/28/19 20:23 Flomax PO 0.4 mg HS SAVAGE Administration Tamsulosin HCl 0.4 mg 02/28/19 09:00 03/01/19 09:06 Flomax PO Not Given DAILY SAVAGE - Exam NAD, awake alert Eye: PERRL, anicteric sclera ENT: moist mucosa Neck: supple, no JVD Heart: RRR, no murmur, no gallops Respiratory: CTAB, no wheezes, no rales, no ronchi Respiratory - other findings: Deminished breath sounds lower lung [place]. Right sided PleurX cath in Gastrointestinal: soft, non-tender, non-distended, normal bowel sounds, no guarding, no rigidity Extremities: 1+ LE edema Skin: no lesions Neurological: CN's grossly intact, no weakness, no focal deficits Psychiatric: normal affect, A&O x 3 Hosp A/P (1) Pleural effusion on right Code(s): J90 - PLEURAL EFFUSION, NOT ELSEWHERE CLASSIFIED Status: Acute (2) Urinary retention due to benign prostatic hyperplasia Code(s): N40.1 - BENIGN PROSTATIC HYPERPLASIA WITH LOWER URINARY TRACT SYMP; R33.8 - OTHER RETENTION OF URINE Status: Chronic (3) DM type 2 (diabetes mellitus, type 2) Status: Chronic Qualifiers: Diabetes mellitus intermediate manager insulin use: without fci use Diabetes mellitus complication status: without complication Qualified Code(s): E11.9 - Type 2 diabetes mellitus without complications (4) HTN (hypertension) Code(s): I10 - ESSENTIAL (PRIMARY) HYPERTENSION Status: Chronic Qualifiers: Hypertension type: essential hypertension Qualified Code(s): I10 - Essential (primary) hypertension - Plan Plan: Pulm/ cc consultation, recommendations appreciated Oncology consultation, recommendations appreciated S/p PleurX cath, breathing much better per patient May possibly do immunotherapy in the outpatient setting per Onc - patient does not want Chemo or radiation Continue home meds as able GI and DVT PPX Will need placement in SNF vs Rehab Oral ABX
[2019-03-01] MEDS: HumaLOG 300 UNITS/3 ML VIAL SC PRN ×2 (18:05→20:44)
[2019-03-02] MEDS: HumaLOG 300 UNITS/3 ML VIAL SC PRN ×2 (05:56→20:20)
[2019-03-02] MEDS: Levothyroxine Sodium 125 MCG TAB PO SCH (05:57)
[2019-03-02] MEDS: Oxybutynin 5 MG TAB PO SCH (08:19)
[2019-03-02] MEDS: guaiFENesin ER 600 MG TAB PO SCH ×2 (08:19→20:20)
[2019-03-02] MEDS: Amoxicillin/Potassium Clav 500 MG TAB PO SCH ×2 (08:19→20:20)
[2019-03-02] MEDS: Finasteride 5 MG TAB PO SCH (08:20)
[2019-03-02] MEDS: Ferrous Sulfate 325 MG TAB PO SCH (08:20)
[2019-03-02] MEDS: Carvedilol 3.125 MG TAB PO SCH (08:20)
[2019-03-02] MEDS: Alogliptin 25 MG TAB PO SCH (08:20)
[2019-03-02] MEDS: Isosorbide Mononitrate (ER) 30 MG TAB PO SCH (08:20)
[2019-03-02] MEDS: Allopurinol 100 MG TAB PO SCH (08:20)
[2019-03-02] MEDS: Atorvastatin Calcium 10 MG TAB PO SCH (08:20)
[2019-03-02] MEDS: Tamsulosin HCl 0.4 MG CAP PO SCH ×2 (08:20→20:20)
[2019-03-02] MEDS: predniSONE 20 MG TAB PO SCH (08:20)
--- NOTE | 2019-03-02 10:48 | PRG ---
DATE OF SERVICE: 03/02/2019 SUBJECTIVE: He is less short of breath. He has a poor appetite. OBJECTIVE: VITAL SIGNS: Saturations are 92% on room air, respiratory rate 18, pulse 75, temperature 98, and blood pressure 142/75. CHEST: Bilateral rhonchi. CARDIAC: Normal S1 and S2. No gallops. ABDOMEN: No masses. IMPRESSION AND PLAN: Metastatic cancer, poor appetite, cachexia. Added Megace to his present regimen. Continue p.o. antibiotics and p.o. prednisone. Disposition, hopefully home placement eventually. Job ID: [id number]
--- NOTE | 2019-03-02 11:28 | PDOC.HOSPP ---
- Subjective Subjective: Patient feeling better today. Breathing well. Minimal chest tube site pain. Patient wanting to know what the plan will be for Immunotherapy, pending lab confirmation. Pending placement. - Objective Vital Signs & Weight: Vital Signs (12 hours) Temp Pulse Resp BP Pulse Ox 03/02/19 08:00 98.4 F 85 18 143/77 H 92 L Weight Admit Weight 151 lb 4 oz Weight 148 lb 8 oz I&O: 03/01/19 03/02/19 03/03/19 06:59 06:59 06:59 Intake Total 800 1810 Output Total 550 675 Balance 250 1135 Result Diagrams: 02/28/19 05:50 02/28/19 05:50 Additional Labs: Accuchecks 03/02/19 03/02/19 03/01/19 10:46 05:55 20:20 POC Glucose 200 H 219 H 263 H 03/01/19 03/01/19 16:36 11:30 POC Glucose 222 H 177 H ROS - Medication Medications: Active Medications Generic Name Dose Route Start Last Admin Trade Name Freq PRN Reason Stop Dose Admin Allopurinol 100 mg 02/28/19 09:00 03/02/19 08:20 Zyloprim PO 100 mg DAILY SAVAGE Administration Alogliptin Benzoate 25 mg 02/28/19 09:00 03/02/19 08:20 Alogliptin PO 25 mg DAILY SAVAGE Administration Amoxicillin/Clavulanate Potassium 500 mg 02/26/19 09:00 03/02/19 08:19 Augmentin PO 03/03/19 09:01 500 mg Q12HR SAVAGE Administration Atorvastatin Calcium 10 mg 02/28/19 09:00 03/02/19 08:20 Lipitor PO 10 mg DAILY SAVAGE Administration Benzonatate 100 mg 02/25/19 03:37 02/25/19 04:10 Tessalon PO 100 mg TIDPRN PRN Administration Cough Bisacodyl 10 mg 02/24/19 18:54 02/26/19 05:59 Dulcolax PO 10 mg DAILYPRN PRN Administration Constipation Carvedilol 3.125 mg 02/28/19 09:00 03/02/19 08:20 Coreg PO 3.125 mg DAILY SAVAGE Administration Ferrous Sulfate 325 mg 02/28/19 09:00 03/02/19 08:20 Feosol PO 325 mg DAILY SAVAGE Administration Finasteride 5 mg 02/26/19 09:00 03/02/19 08:20 Proscar PO 5 mg DAILY SAVAGE Administration Guaifenesin 600 mg 02/28/19 09:00 03/02/19 08:19 Mucinex PO 600 mg BID SAVAGE Administration Insulin Human Lispro 0 units 02/24/19 19:44 03/02/19 05:56 Humalog SC 3 unit .MILD SLIDING SCALE PRN Administration Mild Correctional Scale Isosorbide Mononitrate 30 mg 02/28/19 09:00 03/02/19 08:20 Imdur Er PO 30 mg DAILY SAVAGE Administration Levothyroxine Sodium 125 mcg 03/01/19 06:00 03/02/19 05:57 Synthroid PO 125 mcg 0600 SAVAGE Administration Oxybutynin Chloride 10 mg 03/01/19 09:00 03/02/19 08:19 Ditropan PO 10 mg DAILY SAVAGE Administration Prednisone 20 mg 02/27/19 08:00 03/02/19 08:20 Prednisone PO 20 mg QAM-WM SAVAGE Administration Tamsulosin HCl 0.4 mg 02/26/19 21:00 03/01/19 20:44 Flomax PO 0.4 mg HS SAVAGE Administration Tamsulosin HCl 0.4 mg 02/28/19 09:00 03/02/19 08:20 Flomax PO 0.4 mg DAILY SAVAGE Administration - Exam NAD, awake alert Eye: PERRL, anicteric sclera ENT: moist mucosa Neck: symmetric, no JVD Heart: no murmur, no gallops, no rubs Heart - other findings: S1 and S2 present Respiratory: CTAB, no wheezes, no rales Respiratory - other findings: Deminished breath sounds lower lung [place]. Right sided PleurX cath in Gastrointestinal: soft, non-tender, non-distended, normal bowel sounds, no guarding, no rigidity Extremities: no edema Skin: no rashes Neurological: CN's grossly intact, no weakness, no focal deficits Musculoskeletal: normal tone, generalized weakness Psychiatric: normal affect, A&O x 3 Hosp A/P (1) Pleural effusion on right Code(s): J90 - PLEURAL EFFUSION, NOT ELSEWHERE CLASSIFIED Status: Acute (2) Urinary retention due to benign prostatic hyperplasia Code(s): N40.1 - BENIGN PROSTATIC HYPERPLASIA WITH LOWER URINARY TRACT SYMP; R33.8 - OTHER RETENTION OF URINE Status: Chronic (3) DM type 2 (diabetes mellitus, type 2) Status: Chronic Qualifiers: Diabetes mellitus fci insulin use: without fci use Diabetes mellitus complication status: without complication Qualified Code(s): E11.9 - Type 2 diabetes mellitus without complications (4) HTN (hypertension) Code(s): I10 - ESSENTIAL (PRIMARY) HYPERTENSION Status: Chronic Qualifiers: Hypertension type: essential hypertension Qualified Code(s): I10 - Essential (primary) hypertension - Plan Plan: Pulm/ cc consultation, recommendations appreciated Oncology consultation, recommendations appreciated S/p PleurX cath, breathing much better per patient May possibly do immunotherapy in the outpatient setting per Onc - patient does not want Chemo or radiation Continue home meds as able GI and DVT PPX Oral ABX Oral steroids Medically stable for lower level of care, pending approval Will need placement in SNF vs Rehab
[2019-03-03] MEDS: Levothyroxine Sodium 125 MCG TAB PO SCH (05:59)
[2019-03-03] MEDS: HumaLOG 300 UNITS/3 ML VIAL SC PRN ×3 (05:59→21:31)
[2019-03-03] MEDS: Alogliptin 25 MG TAB PO SCH (09:52)
[2019-03-03] MEDS: Ferrous Sulfate 325 MG TAB PO SCH (09:52)
[2019-03-03] MEDS: Megestrol Acetate 800 MG/20 ML UDCUP PO SCH (09:52)
[2019-03-03] MEDS: Oxybutynin 5 MG TAB PO SCH (09:53)
[2019-03-03] MEDS: Carvedilol 3.125 MG TAB PO SCH (09:54)
[2019-03-03] MEDS: guaiFENesin ER 600 MG TAB PO SCH ×2 (09:54→21:29)
[2019-03-03] MEDS: predniSONE 20 MG TAB PO SCH (09:55)
[2019-03-03] MEDS: Finasteride 5 MG TAB PO SCH (09:55)
[2019-03-03] MEDS: Allopurinol 100 MG TAB PO SCH (09:55)
[2019-03-03] MEDS: Isosorbide Mononitrate (ER) 30 MG TAB PO SCH (09:56)
[2019-03-03] MEDS: Atorvastatin Calcium 10 MG TAB PO SCH (09:56)
[2019-03-03] MEDS: Tamsulosin HCl 0.4 MG CAP PO SCH ×2 (09:56→21:29)
[2019-03-03] MEDS: Amoxicillin/Potassium Clav 500 MG TAB PO SCH (09:57)
--- NOTE | 2019-03-03 10:30 | PRG ---
DATE OF SERVICE: 03/03/2019 SUBJECTIVE: This morning, he was doing better. He is going to be drained today. OBJECTIVE: VITAL SIGNS: Temperature is 97, pulse 74, respiratory rate 16, sats 96% on room air, and blood pressure 134\72. CHEST: Decreased breath sounds. No wheezing. CARDIAC: Normal S1 and S2. No gallops. ABDOMEN: Soft. IMPRESSION: 1. Metastatic cancer. 2. Benign prostatic hyperplasia. 3. Severe deconditioning. 4. Advanced age. PLAN: Awaiting input from Oncology, PT, supportive care, eventually placement. Job ID: [id number] [facility]
--- NOTE | 2019-03-03 18:17 | PDOC.HOSPP ---
- Subjective Encounter Date: 03/03/19 Encounter Time: 11:20 Subjective: Pt seen for followup re: pleural effusion. Feels better. - Objective Vital Signs & Weight: Vital Signs (12 hours) Temp Pulse Resp BP Pulse Ox 03/03/19 08:00 97.9 F 76 16 109/55 L 96 Weight Admit Weight 151 lb 4 oz Weight 148 lb 8 oz I&O: 03/02/19 03/03/19 03/04/19 06:59 06:59 06:59 Intake Total 1810 610 Output Total 675 650 Balance 1135 -40 Result Diagrams: 02/28/19 05:50 02/28/19 05:50 Additional Labs: Accuchecks 03/03/19 03/03/19 03/03/19 16:41 11:17 04:26 POC Glucose 330 H 225 H 222 H 03/02/19 19:43 POC Glucose 275 H Labs and MARs reviewed by me. ROS - Review of Systems Cardiovascular: denies: chest pain, palpitations, orthopnea, paroxysmal noc. dyspnea, edema, light headedness Gastrointestinal: denies: nausea, vomitting, abdominal pain, diarrhea, constipation, melena, hematochezia - Medication Medications: Active Medications Generic Name Dose Route Start Last Admin Trade Name Freq PRN Reason Stop Dose Admin Allopurinol 100 mg 02/28/19 09:00 03/03/19 09:55 Zyloprim PO 100 mg DAILY SAVAGE Administration Alogliptin Benzoate 25 mg 02/28/19 09:00 03/03/19 09:52 Alogliptin PO 25 mg DAILY SAVAGE Administration Atorvastatin Calcium 10 mg 02/28/19 09:00 03/03/19 09:56 Lipitor PO 10 mg DAILY SAVAGE Administration Benzonatate 100 mg 02/25/19 03:37 02/25/19 04:10 Tessalon PO 100 mg TIDPRN PRN Administration Cough Bisacodyl 10 mg 02/24/19 18:54 02/26/19 05:59 Dulcolax PO 10 mg DAILYPRN PRN Administration Constipation Carvedilol 3.125 mg 02/28/19 09:00 03/03/19 09:54 Coreg PO 3.125 mg DAILY SAVAGE Administration Ferrous Sulfate 325 mg 02/28/19 09:00 03/03/19 09:52 Feosol PO 325 mg DAILY SAVAGE Administration Finasteride 5 mg 02/26/19 09:00 03/03/19 09:55 Proscar PO 5 mg DAILY SAVAGE Administration Guaifenesin 600 mg 02/28/19 09:00 03/03/19 09:54 Mucinex PO 600 mg BID SAVAGE Administration Insulin Human Lispro 0 units 02/24/19 19:44 03/03/19 05:59 Humalog SC 3 unit .MILD SLIDING SCALE PRN Administration Mild Correctional Scale Isosorbide Mononitrate 30 mg 02/28/19 09:00 03/03/19 09:56 Imdur Er PO 30 mg DAILY SAVAGE Administration Levothyroxine Sodium 125 mcg 03/01/19 06:00 03/03/19 05:59 Synthroid PO 125 mcg 0600 SAVAGE Administration Megestrol Acetate 800 mg 03/03/19 09:00 03/03/19 09:52 Megace PO 800 mg DAILY SAVAGE Administration Oxybutynin Chloride 10 mg 03/01/19 09:00 03/03/19 09:53 Ditropan PO 10 mg DAILY SAVAGE Administration Prednisone 20 mg 02/27/19 08:00 03/03/19 09:55 Prednisone PO 20 mg QAM-WM SAVAGE Administration Sodium Chloride 10 ml 03/02/19 21:00 03/03/19 09:57 Flush - Normal Saline IVF 10 ml Q12HR SAVAGE Administration Tamsulosin HCl 0.4 mg 02/26/19 21:00 03/02/19 20:20 Flomax PO 0.4 mg HS SAVAGE Administration Tamsulosin HCl 0.4 mg 02/28/19 09:00 03/03/19 09:56 Flomax PO 0.4 mg DAILY SAVAGE Administration - Exam NAD Eye: anicteric sclera ENT: moist mucosa Neck: supple Heart: RRR Respiratory: CTAB Respiratory - other findings: R PleurX catheter Gastrointestinal: soft Psychiatric: normal affect, normal behavior Hosp A/P (1) Pleural effusion on right Code(s): J90 - PLEURAL EFFUSION, NOT ELSEWHERE CLASSIFIED Status: Acute (2) BPH (benign prostatic hyperplasia) Code(s): N40.0 - BENIGN PROSTATIC HYPERPLASIA WITHOUT LOWER URINRY TRACT SYMP Status: Chronic (3) DM type 2 (diabetes mellitus, type 2) Status: Chronic Qualifiers: Diabetes mellitus superintendent marine oil terminal insulin use: without snf use Diabetes mellitus complication status: without complication Qualified Code(s): E11.9 - Type 2 diabetes mellitus without complications (4) Dyslipidemia Code(s): E78.5 - HYPERLIPIDEMIA, UNSPECIFIED Status: Chronic (5) Gout Code(s): M10.9 - GOUT, UNSPECIFIED Status: Chronic (6) HTN (hypertension) Code(s): I10 - ESSENTIAL (PRIMARY) HYPERTENSION Status: Chronic Qualifiers: Hypertension type: essential hypertension Qualified Code(s): I10 - Essential (primary) hypertension (7) Hypothyroidism Code(s): E03.9 - HYPOTHYROIDISM, UNSPECIFIED Status: Chronic Qualifiers: Hypothyroidism type: unspecified Qualified Code(s): E03.9 - Hypothyroidism , unspecified - Plan mcgrath catheter, continue antibiotics, out of bed/ambulate BP controlled. Switch to moderate insuin sliding scale, blood sugars still high. Pt awaiting SNU bed. Pt has Mcgrath catheter for urinary retention. Continue Augmentin. 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
[2019-03-04] MEDS: Levothyroxine Sodium 125 MCG TAB PO SCH (05:17)
[2019-03-04] MEDS: HumaLOG 300 UNITS/3 ML VIAL SC PRN ×4 (05:27→20:20)
[2019-03-04] MEDS: Megestrol Acetate 800 MG/20 ML UDCUP PO SCH (09:18)
[2019-03-04] MEDS: Allopurinol 100 MG TAB PO SCH (09:18)
[2019-03-04] MEDS: Ferrous Sulfate 325 MG TAB PO SCH (09:18)
[2019-03-04] MEDS: Isosorbide Mononitrate (ER) 30 MG TAB PO SCH (09:18)
[2019-03-04] MEDS: Oxybutynin 5 MG TAB PO SCH (09:19)
[2019-03-04] MEDS: Atorvastatin Calcium 10 MG TAB PO SCH (09:19)
[2019-03-04] MEDS: Carvedilol 3.125 MG TAB PO SCH (09:19)
[2019-03-04] MEDS: predniSONE 20 MG TAB PO SCH (09:19)
[2019-03-04] MEDS: Finasteride 5 MG TAB PO SCH (09:19)
[2019-03-04] MEDS: Alogliptin 25 MG TAB PO SCH (09:19)
[2019-03-04] MEDS: Tamsulosin HCl 0.4 MG CAP PO SCH ×2 (09:20→20:18)
[2019-03-04] MEDS: guaiFENesin ER 600 MG TAB PO SCH ×2 (09:20→20:18)
--- NOTE | 2019-03-04 10:07 | PRG ---
DATE OF SERVICE: 03/04/2019 SUBJECTIVE: Keagan Hernandez this morning is awake, alert, responsive, in no distress. OBJECTIVE: VITAL SIGNS: His sats are 98% on room air, respiratory rate 20, temperature 98, pulse 67, and blood pressure 140/62. CHEST: Decreased breath sounds. No wheezing. CARDIAC: Normal S1, S2. No gallops. ABDOMEN: No masses. IMPRESSION: 1. Metastatic lung cancer. Massive pleural effusion. 2. Severe deconditioning, advanced age. It is unclear what is transpiring. He probably needs to be discharged to home with his pleural cath in place. Oncology to decide the further treatment. Job ID: [id number]
--- NOTE | 2019-03-04 15:58 | PDOC.HOSPP ---
- Subjective Encounter Date: 03/04/19 Encounter Time: 10:00 Subjective: Pt seen for followup re; right pleural effusion. Feels ok, no new complaints today. - Objective Vital Signs & Weight: Vital Signs (12 hours) Temp Pulse Resp BP Pulse Ox 03/04/19 08:00 98.7 F 67 20 114/62 94 L Weight Admit Weight 151 lb 4 oz Weight 148 lb 8 oz I&O: 03/03/19 03/04/19 03/05/19 06:59 06:59 06:59 Intake Total 610 960 Output Total 650 700 Balance -40 260 Result Diagrams: 02/28/19 05:50 02/28/19 05:50 Additional Labs: Accuchecks 03/04/19 03/04/19 03/03/19 11:50 04:20 19:57 POC Glucose 227 H 204 H 305 H 03/03/19 03/03/19 16:41 11:17 POC Glucose 330 H 225 H labs and MARs reviewed by ri Hospitalist ROS - Review of Systems Respiratory: reports: cough, sputum. denies: dry, shortness of breath, hemoptysis, SOB with excertion, pleuritic pain, wheezing Cardiovascular: denies: chest pain, palpitations, orthopnea, paroxysmal noc. dyspnea, edema, light headedness - Medication Medications: Active Medications Generic Name Dose Route Start Last Admin Trade Name Freq PRN Reason Stop Dose Admin Allopurinol 100 mg 02/28/19 09:00 03/04/19 09:18 Zyloprim PO 100 mg DAILY SAVAGE Administration Alogliptin Benzoate 25 mg 02/28/19 09:00 03/04/19 09:19 Alogliptin PO 25 mg DAILY SAVAGE Administration Atorvastatin Calcium 10 mg 02/28/19 09:00 03/04/19 09:19 Lipitor PO 10 mg DAILY SAVAGE Administration Benzonatate 100 mg 02/25/19 03:37 02/25/19 04:10 Tessalon PO 100 mg TIDPRN PRN Administration Cough Bisacodyl 10 mg 02/24/19 18:54 02/26/19 05:59 Dulcolax PO 10 mg DAILYPRN PRN Administration Constipation Carvedilol 3.125 mg 02/28/19 09:00 03/04/19 09:19 Coreg PO 3.125 mg DAILY SAVAGE Administration Ferrous Sulfate 325 mg 02/28/19 09:00 03/04/19 09:18 Feosol PO 325 mg DAILY SAVAGE Administration Finasteride 5 mg 02/26/19 09:00 03/04/19 09:19 Proscar PO 5 mg DAILY SAVAGE Administration Guaifenesin 600 mg 02/28/19 09:00 03/04/19 09:20 Mucinex PO 600 mg BID SAVAGE Administration Insulin Human Lispro 0 units 03/03/19 18:19 03/04/19 12:22 Humalog SC 4 units .MODERATE SLIDING SC PRN Administration Moderate Correctional Scale Isosorbide Mononitrate 30 mg 02/28/19 09:00 03/04/19 09:18 Imdur Er PO 30 mg DAILY SAVAGE Administration Levothyroxine Sodium 125 mcg 03/01/19 06:00 03/04/19 05:17 Synthroid PO 125 mcg 0600 SAVAGE Administration Megestrol Acetate 800 mg 03/03/19 09:00 03/04/19 09:18 Megace PO 800 mg DAILY SAVAGE Administration Oxybutynin Chloride 10 mg 03/01/19 09:00 03/04/19 09:19 Ditropan PO 10 mg DAILY SAVAGE Administration Prednisone 20 mg 02/27/19 08:00 03/04/19 09:19 Prednisone PO 20 mg QAM-WM SAVAGE Administration Sodium Chloride 10 ml 03/02/19 21:00 03/04/19 09:20 Flush - Normal Saline IVF 10 ml Q12HR SAVAGE Administration Tamsulosin HCl 0.4 mg 02/26/19 21:00 03/03/19 21:29 Flomax PO 0.4 mg HS SAVAGE Administration Tamsulosin HCl 0.4 mg 02/28/19 09:00 03/04/19 09:20 Flomax PO 0.4 mg DAILY SAVAGE Administration - Exam General Appearance: NAD Eye: anicteric sclera ENT: moist mucosa Neck: supple Heart: RRR Respiratory: CTAB Respiratory - other findings: R PleurX catheter Gastrointestinal: soft, non-tender Extremities: no edema Neurological: no weakness Psychiatric: normal affect, normal behavior Hosp A/P (1) Pleural effusion on right Code(s): J90 - PLEURAL EFFUSION, NOT ELSEWHERE CLASSIFIED Status: Acute (2) BPH (benign prostatic hyperplasia) Code(s): N40.0 - BENIGN PROSTATIC HYPERPLASIA WITHOUT LOWER URINRY TRACT SYMP Status: Chronic (3) DM type 2 (diabetes mellitus, type 2) Status: Chronic Qualifiers: Diabetes mellitus correction insulin use: without terminal computer operator use Diabetes mellitus complication status: without complication Qualified Code(s): E11.9 - Type 2 diabetes mellitus without complications (4) Dyslipidemia Code(s): E78.5 - HYPERLIPIDEMIA, UNSPECIFIED Status: Chronic (5) Gout Code(s): M10.9 - GOUT, UNSPECIFIED Status: Chronic (6) HTN (hypertension) Code(s): I10 - ESSENTIAL (PRIMARY) HYPERTENSION Status: Chronic Qualifiers: Hypertension type: essential hypertension Qualified Code(s): I10 - Essential (primary) hypertension (7) Hypothyroidism Code(s): E03.9 - HYPOTHYROIDISM, UNSPECIFIED Status: Chronic Qualifiers: Hypothyroidism type: unspecified Qualified Code(s): E03.9 - Hypothyroidism , unspecified - Plan continue antibiotics, PT/OT, out of bed/ambulate BP controlled. Switch to aggressive insulin sliding scale, blood sugars still high. s/p Villareal catheter for urinary retention. 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 SNU does not have PleurX supplies, will accept patient after they have the supplies in place, likely later today or tomorrow.
[2019-03-05] MEDS: Levothyroxine Sodium 125 MCG TAB PO SCH (05:15)
[2019-03-05] MEDS: Ferrous Sulfate 325 MG TAB PO SCH (08:27)
[2019-03-05] MEDS: guaiFENesin ER 600 MG TAB PO SCH ×2 (08:27→21:09)
[2019-03-05] MEDS: predniSONE 20 MG TAB PO SCH (08:27)
[2019-03-05] MEDS: Finasteride 5 MG TAB PO SCH (08:28)
[2019-03-05] MEDS: Atorvastatin Calcium 10 MG TAB PO SCH (08:28)
[2019-03-05] MEDS: Allopurinol 100 MG TAB PO SCH (08:28)
[2019-03-05] MEDS: Oxybutynin 5 MG TAB PO SCH (08:28)
[2019-03-05] MEDS: Isosorbide Mononitrate (ER) 30 MG TAB PO SCH (08:28)
[2019-03-05] MEDS: Tamsulosin HCl 0.4 MG CAP PO SCH ×2 (08:28→21:09)
[2019-03-05] MEDS: Alogliptin 25 MG TAB PO SCH (08:28)
[2019-03-05] MEDS: Carvedilol 3.125 MG TAB PO SCH (08:28)
[2019-03-05] MEDS: Megestrol Acetate 800 MG/20 ML UDCUP PO SCH (08:29)
--- NOTE | 2019-03-05 09:23 | PRG ---
DATE OF SERVICE: 03/05/2019 SUBJECTIVE: An 88-year-old gentleman this morning, he is less short of breath. OBJECTIVE: VITAL SIGNS: Saturations are 92 on room air, respiratory rate 16, temperature 98, blood pressure 106/62. CHEST: Bilateral rhonchi. CARDIAC: Normal S1 and S2. No gallops. ABDOMEN: No masses. ASSESSMENT: Metastatic cancer. PLAN: Oncology will decide any kind of treatment. He has a pleural catheter for drainage purposes for massive pleural effusion. He is a DNR. The patient will decide about ongoing treatment options. Job ID: [id number]
[2019-03-05] MEDS: HumaLOG 300 UNITS/3 ML VIAL SC PRN ×3 (12:43→21:09)
--- NOTE | 2019-03-05 18:12 | PDOC.HOSPP ---
- Subjective Encounter Date: 03/05/19 Encounter Time: 10:20 Subjective: Pt seen for followup re: right pleural effusion. No complaints today. - Objective Vital Signs & Weight: Vital Signs (12 hours) Temp Pulse Resp BP Pulse Ox 03/05/19 08:40 92 L 03/05/19 08:37 98.6 F 77 16 106/62 92 L Weight Admit Weight 151 lb 4 oz Weight 148 lb 8 oz I&O: 03/04/19 03/05/19 03/06/19 06:59 06:59 06:59 Intake Total 960 1350 715 Output Total 700 1100 600 Balance 260 250 115 Result Diagrams: 02/28/19 05:50 02/28/19 05:50 Additional Labs: Accuchecks 03/05/19 03/05/19 03/04/19 16:57 11:08 20:14 POC Glucose 257 H 249 H 328 H labs and MARs reviewed by me Hospitalist ROS - Review of Systems Cardiovascular: denies: chest pain, palpitations, orthopnea, paroxysmal noc. dyspnea, edema, light headedness Gastrointestinal: denies: nausea, vomitting, abdominal pain, diarrhea, constipation, melena, hematochezia - Medication Medications: Active Medications Generic Name Dose Route Start Last Admin Trade Name Freq PRN Reason Stop Dose Admin Allopurinol 100 mg 02/28/19 09:00 03/05/19 08:28 Zyloprim PO 100 mg DAILY SAVAGE Administration Alogliptin Benzoate 25 mg 02/28/19 09:00 03/05/19 08:28 Alogliptin PO 25 mg DAILY SAVAGE Administration Atorvastatin Calcium 10 mg 02/28/19 09:00 03/05/19 08:28 Lipitor PO 10 mg DAILY SAVAGE Administration Benzonatate 100 mg 02/25/19 03:37 02/25/19 04:10 Tessalon PO 100 mg TIDPRN PRN Administration Cough Bisacodyl 10 mg 02/24/19 18:54 02/26/19 05:59 Dulcolax PO 10 mg DAILYPRN PRN Administration Constipation Carvedilol 3.125 mg 02/28/19 09:00 03/05/19 08:28 Coreg PO 3.125 mg DAILY SAVAGE Administration Ferrous Sulfate 325 mg 02/28/19 09:00 03/05/19 08:27 Feosol PO 325 mg DAILY SAVAGE Administration Finasteride 5 mg 02/26/19 09:00 03/05/19 08:28 Proscar PO 5 mg DAILY SAVAGE Administration Guaifenesin 600 mg 02/28/19 09:00 03/05/19 08:27 Mucinex PO 600 mg BID SAVAGE Administration Insulin Human Lispro 0 units 03/04/19 15:57 03/05/19 17:42 Humalog SC 9 unit .AGGRESSIVE SLIDING PRN Administration Aggressive Correctional Scale Isosorbide Mononitrate 30 mg 02/28/19 09:00 03/05/19 08:28 Imdur Er PO 30 mg DAILY SAVAGE Administration Levothyroxine Sodium 125 mcg 03/01/19 06:00 03/05/19 05:15 Synthroid PO 125 mcg 0600 SAVAGE Administration Megestrol Acetate 800 mg 03/03/19 09:00 03/05/19 08:29 Megace PO 800 mg DAILY SAVAGE Administration Oxybutynin Chloride 10 mg 03/01/19 09:00 03/05/19 08:28 Ditropan PO 10 mg DAILY SAVAGE Administration Prednisone 20 mg 02/27/19 08:00 03/05/19 08:27 Prednisone PO 20 mg QAM-WM SAVAGE Administration Sodium Chloride 10 ml 03/02/19 21:00 03/05/19 08:29 Flush - Normal Saline IVF 10 ml Q12HR SAVAGE Administration Tamsulosin HCl 0.4 mg 02/26/19 21:00 03/04/19 20:18 Flomax PO 0.4 mg HS SAVAGE Administration Tamsulosin HCl 0.4 mg 02/28/19 09:00 03/05/19 08:28 Flomax PO 0.4 mg DAILY SAVAGE Administration - Exam General Appearance: NAD, awake alert ENT: moist mucosa Neck: supple Heart: RRR Respiratory: CTAB Gastrointestinal: soft Neurological: no weakness Psychiatric: normal affect, normal behavior Hosp A/P (1) Pleural effusion on right Code(s): J90 - PLEURAL EFFUSION, NOT ELSEWHERE CLASSIFIED Status: Acute (2) BPH (benign prostatic hyperplasia) Code(s): N40.0 - BENIGN PROSTATIC HYPERPLASIA WITHOUT LOWER URINRY TRACT SYMP Status: Chronic (3) DM type 2 (diabetes mellitus, type 2) Status: Chronic Qualifiers: Diabetes mellitus fci insulin use: without fci use Diabetes mellitus complication status: without complication Qualified Code(s): E11.9 - Type 2 diabetes mellitus without complications (4) Dyslipidemia Code(s): E78.5 - HYPERLIPIDEMIA, UNSPECIFIED Status: Chronic (5) Gout Code(s): M10.9 - GOUT, UNSPECIFIED Status: Chronic (6) HTN (hypertension) Code(s): I10 - ESSENTIAL (PRIMARY) HYPERTENSION Status: Chronic Qualifiers: Hypertension type: essential hypertension Qualified Code(s): I10 - Essential (primary) hypertension (7) Hypothyroidism Code(s): E03.9 - HYPOTHYROIDISM, UNSPECIFIED Status: Chronic Qualifiers: Hypothyroidism type: unspecified Qualified Code(s): E03.9 - Hypothyroidism , unspecified - Plan PT/OT, out of bed/ambulate BP controlled. Blood sugars still high, add Lantus 5 units HS. s/p Villareal catheter for urinary retention. 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 SNU still awaiting PleurX catheter supplies.
[2019-03-05] MEDS ORDERED: Insulin Glargine 5 UNITS in Pre-Filled Syringe 1 EACH SC SCH (21:00)
[2019-03-06] MEDS: Levothyroxine Sodium 125 MCG TAB PO SCH (06:10)
[2019-03-06] MEDS: Atorvastatin Calcium 10 MG TAB PO SCH (08:54)
[2019-03-06] MEDS: predniSONE 20 MG TAB PO SCH (08:54)
[2019-03-06] MEDS: Tamsulosin HCl 0.4 MG CAP PO SCH (08:54)
[2019-03-06] MEDS: Allopurinol 100 MG TAB PO SCH (08:54)
[2019-03-06] MEDS: Isosorbide Mononitrate (ER) 30 MG TAB PO SCH (08:55)
[2019-03-06] MEDS: Carvedilol 3.125 MG TAB PO SCH (08:55)
[2019-03-06] MEDS: Finasteride 5 MG TAB PO SCH (08:55)
[2019-03-06] MEDS: Alogliptin 25 MG TAB PO SCH (08:56)
[2019-03-06] MEDS: Megestrol Acetate 800 MG/20 ML UDCUP PO SCH (08:56)
[2019-03-06] MEDS: guaiFENesin ER 600 MG TAB PO SCH (08:56)
[2019-03-06] MEDS: Oxybutynin 5 MG TAB PO SCH (08:56)
[2019-03-06] MEDS: Ferrous Sulfate 325 MG TAB PO SCH (08:56)
--- NOTE | 2019-03-06 10:16 | PRG ---
DATE OF SERVICE: 03/06/2019 SUBJECTIVE: This morning, he is doing better. His appetite is improved. He is less short of breath, less coughing. We are trying to get placement for him and trying to get his vacuum bottles in place for his pleural catheter. OBJECTIVE: VITAL SIGNS: Saturations are 93% on room air, respiratory rate 20, temperature 98, and blood pressure 99/52. CHEST: Decreased breath sounds without any wheezing. CARDIAC: Normal S1 and S2. No gallops. ABDOMEN: No mass. IMPRESSION: Metastatic cancer, chronic obstructive pulmonary disease, severe deconditioning. PLAN: Await placement. Taper and discontinue prednisone. Job ID: [id number]
[2019-03-06] MEDS: HumaLOG 300 UNITS/3 ML VIAL SC PRN (12:25)
[2019-03-06 15:41] VITALS: BP 106/57; TEMP 98.8
--- NOTE | 2019-03-06 17:56 | PQF ---
CRISTI DELEONDAILY [id number] CLINICAL DOCUMENTATION IMPROVEMENT CLARIFICATION FORM: ICD-10 Updated PLEASE DO AN ADDENDUM TO THE PROGRESS NOTE WITH ANY DOCUMENTATION UPDATES OR ADDITIONS AND CARRY THROUGH TO DC SUMMARY. THANK YOU. Date: 03/06/19 ATTN: DR. Sincere ATKINS Please exercise your independent, professional judgment in responding to the clarification form. Clinical indicators are provided on the bottom of this form for your review. Please check appropriate box(s): [ ] Protein Calorie Malnutrition: [ ] Mild [ ] Moderate [ ] Severe [ ] Other Malnutrition (please specify) __ [ ] Other diagnosis [ ] Unable to determine In addition, please specify: Present on Admission (POA): [ ] Yes [ ] No [ ] Unable to determine CLINICAL INDICATORS - SIGNS / SYMPTOMS / LABS 02/24 PULMONOLOGY CONSULT ([facility]) : PHYSICAL EXAM -CACHECTIC GENTLEMAN; IMPRESSION: 6) MARKED WEIGHT LOSS. 02/27 PN ([facility]) : CACHEXIA 03/02 PN ([facility]) POOR APPETITE, CACHEXIA; ADDED MEGACE TO HIS REGIMAN 02/28 TITLE EXAMINER ASSESSMENT: MALNUTRITION R/T METASTATIC CARCINOMA; EVIDENCED BY MODERATE TEMPORALIS, MUSCLE WASTING, MODERATE SHOULDER MUSCLE WASTING, SEVERE ORBITAL FAT PAD LOSS, PATIENT REPORTED HE NOTICED HIS RIBS WERE VISIBLE; DECREASED APPETITE X 3 WEEKS. RISK: METASTATIC CARCINOMA OF R LUNG ( PULMONOLOGY CONSULT / 02/28) CACHEXIA ( PULMONOLOGY PN / 02/27, 03/02) TREATMENTS: TITLE EXAMINER ASSESSMENT (02/28) NUTRITIONAL SUPPLEMENT (PHYSICIAN ORDER GLUCERNA / 02/25- DISCHARGE) PO MEGACE ( PHYSICIAN ORDER / 03/03 -DISCHARGE) Moderate Malnutrition (in acute illness) Energy Intake: <75% of estimated energy requirement for > 7 days Weight Loss: 1-2%/1 week; 5%/ 1 month; 7.5%/3 months Other: mild body fat loss; mild muscle mass loss; mild fluid accumulation; SAP Outside Event Sales Specialist Crystal Reports Winform Viewer Severe Malnutrition (in acute illness) Energy Intake: < 50% of estimated energy requirement for > 5 days Weight Loss: >1-2%/1 week; >5%/1 month; >7.5%/3 months Other: moderate body fat loss; moderate muscle mass loss; moderate- severe fluid accumulation; measurably reduced drainage inspector strength Moderate Malnutrition (in chronic illness) Energy Intake: <75% of estimated energy requirement for >1 month Weight Loss: 5%/1 month; 7.5%/3 months; 10%/6 months; 20%/1 year Other: mild body fat loss; mild muscle mass loss; mild fluid accumulation Severe Malnutrition (in chronic illness) Energy Intake: <75% of estimated energy requirement for >1 month Weight Loss: >5%/1 month; >7.5%/3 months; >10%/6 months; >20%/1 year Other: severe body fat loss; severe muscle mass loss; severe fluid accumulation ; measurably reduced drainage inspector strength THANK YOU! YOSELIN (This form is maintained as a part of the permanent medical record) 2014 [employer], [employer]. All Rights Reserved [email or web address] [phone] [email or web address]
--- NOTE | 2019-03-07 07:14 | DIS ---
DATE OF ADMISSION: 02/24/2019 DATE OF DISCHARGE: 03/06/2019 PRIMARY CARE PROVIDER: Dr. Mary Seals. DISCHARGE DIAGNOSES: 1. Malignant pleural effusion. 2. 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 3. Urinary retention. 4. Anemia of chronic disease. 5. Hyponatremia. 6. Physical deconditioning. CONDITION OF PATIENT ON THE DAY OF DISCHARGE: Stable. I assessed Mr. Hernandez on the day of discharge. He denies any chest pain or shortness of breath. Vital signs are stable. S1 and S2 are heard, regular. Lungs are clear to auscultation bilaterally. Followup appointments: Patient is advised to follow up with primary care provider; Oncology, Dr. Carpenter; and Urology, Dr. Gaona in 2 weeks. DISCHARGE MEDICATIONS: 1. Allopurinol 100 mg daily. 2. Atorvastatin 10 mg daily. 3. Ferrous sulfate 325 mg daily. 4. Mucinex 600 mg 2 times a day. 5. Imdur 30 mg daily. 6. Synthroid 125 mcg daily. 7. Oxybutynin 10 mg daily. 8. Sitagliptin 100 mg daily. 9. Flomax 0.4 mg daily. 10. Torsemide 20 mg 2 times a day. 11. Artificial Tears as needed. 12. Dulcolax as needed. 13. Proscar 5 mg daily. 14. Motrin 600 mg every 6 hours as needed. 15. Lantus insulin 5 units at bedtime. 16. Megace 800 mg daily. CONSULTATIONS DURING THIS HOSPITALIZATION: Pulmonology, Dr. Olmstead; Urology, Dr. Gaona; and Oncology, Dr. Carpenter. HOSPITAL COURSE: Mr. Hernandez is a pleasant 88-year-old gentleman who was admitted to [facility] on February 24, 2019, for generalized weakness and large right-sided pleural effusion. Please refer to my history and physical note dated February 24, 2019, for further details. CT scan of the chest, abdomen, and pelvis showed moderate right and small left pleural effusion, ground glass opacities in the right lung, necrotic subcarinal lymph nodes, atrophy of the pancreas, and anasarca. He was seen by Pulmonology, Oncology, and Urology Services during this hospitalization. He underwent thoracentesis. Pleural fluid was positive for malignant cells, consistent with non-small cell carcinoma. PD-L1 immunohistochemical stain will be performed at [facility]. Oncology Service will follow up with the patient to discuss the result. He underwent right-sided PleurX catheter placement. He also developed urinary retention. He was seen by Urology Service. He has been started on Flomax and Proscar. He has a Villareal catheter in place at the time of discharge. He should follow up with Urology Service in 2 weeks' time. He reportedly did not wish to have any chemotherapy. Oncology Service will follow up with him as outpatient. He was physically deconditioned. He was seen by Therapy Services. He has been accepted for shelter at [facility]. He is being discharged there in a stable condition. His blood sugars were elevated during this hospitalization, likely secondary to steroid therapy. He has been started on low-dose Lantus for this reason. Many thanks for allowing me to participate in your patient's care. Please feel free to contact me with any questions or concerns. DISCHARGE DESTINATION: [facility]. TIME SPENT: Total amount of time spent coordinating this discharge: Thirty-two minutes. Job ID: [id number] ADDENDUM ON 03/07/2019: Mr. Hernandez's discharge diagnoses also include severe protein-calorie malnutrition, present on admission. MTDD
--- NOTE | 2019-03-11 10:31 | PQF ---
CRISTI DELEONDAILY [id number] CLINICAL DOCUMENTATION IMPROVEMENT CLARIFICATION FORM: ICD-10 Updated PLEASE DO AN ADDENDUM TO THE PROGRESS NOTE WITH ANY DOCUMENTATION UPDATES OR ADDITIONS AND CARRY THROUGH TO DC SUMMARY. THANK YOU. Date: 03/11/2019 ATTN: DR. Sincere ATKINS Please exercise your independent, professional judgment in responding to the clarification form. Clinical indicators are provided on the bottom of this form for your review Please check appropriate box(s): [ ] Protein Calorie Malnutrition: [ ] Mild [ ] Moderate [ ] Severe [ ] Other Malnutrition (please specify) __ [ ] Cachexia [ ] Other diagnosis [ ] Unable to determine In addition, please specify: Present on Admission (POA): [ ] Yes [ ] No [ ] Unable to determine CLINICAL INDICATORS - SIGNS / SYMPTOMS / LABS 02/24 PULMONOLOGY CONSULT ([facility]) : PHYSICAL EXAM -CACHECTIC GENTLEMAN; IMPRESSION: 6) MARKED WEIGHT LOSS. 02/27 PN ([facility]) : CACHEXIA 03/02 PN ([facility]) POOR APPETITE, CACHEXIA; ADDED MEGACE TO HIS REGIMEN 02/28 OUTPATIENT PHLEBOTOMIST ASSESSMENT: MALNUTRITION R/T METASTATIC CARCINOMA; EVIDENCED BY MODERATE TEMORALIS, MUSCLE WASTING, MODERATE SHOULDER MUSCLE WASTING, SEVERE ORBITAL FAT PAD LOSS, PATIENT REPORTED HE NOTICED HIS RIBS WERE VISIBLE; DECREASED APPETITE X 3 WEEKS. RISK: METASTATIC CARCINOMA OF R LUNG ( PULMONOLOGY CONSULT / 02/28) CACHEXIA ( PULMONOLOGY PN / 02/27, 03/02) TREATMENTS: OUTPATIENT PHLEBOTOMIST ASSESSMENT (02/28) NUTRITIONAL SUPPLEMENT (PHYSICIAN ORDER GLUCERNA / 02/25- DISCHARGE) PO MEGACE ( PHYSICIAN ORDER / 03/03 -DISCHARGE) Moderate Malnutrition (in acute illness) Energy Intake: <75% of estimated energy requirement for > 7 days Weight Loss: 1-2%/1 week; 5%/ 1 month; 7.5%/3 months Other: mild body fat loss; mild muscle mass loss; mild fluid accumulation; Severe Malnutrition (in acute illness) Energy Intake: < 50% of estimated energy requirement for > 5 days Weight Loss: >1-2%/1 week; >5%/1 month; >7.5%/3 months Other: moderate body fat loss; moderate muscle mass loss; moderate- severe fluid accumulation; measurably reduced egg gatherer strength Moderate Malnutrition (in chronic illness) Energy Intake: <75% of estimated energy requirement for >1 month Weight Loss: 5%/1 month; 7.5%/3 months; 10%/6 months; 20%/1 year Other: mild body fat loss; mild muscle mass loss; mild fluid accumulation Severe Malnutrition (in chronic illness) Energy Intake: <75% of estimated energy requirement for >1 month Weight Loss: >5%/1 month; >7.5%/3 months; >10%/6 months; >20%/1 year Other: severe body fat loss; severe muscle mass loss; severe fluid accumulation ; measurably reduced egg gatherer strength THANK YOU! YOSELIN (This form is maintained as a part of the permanent medical record) 2014 [employer] All Rights Reserved [email or web address] [phone] [email or web address]
== END 2019-03-06 16:41 | DRG 180 ==
LOC: ERS 12:14 → ERHOLD 15:34 → T4-B 19:07
PROVIDERS: ADMIT Internal Medicine; ATTEND Internal Medicine
PROC: 0W9930Z Drainage of Right Pleural Cavity with Drainage Device, Percutaneous Approach (ICD-10-PCS; principal; 2019-02-25)
DX: C78.01 Secondary malignant neoplasm of right lung (principal); E43 Unspecified severe protein-calorie malnutrition; E87.1 Hypo-osmolality and hyponatremia; N39.0 Urinary tract infection, site not specified; J91.0 Malignant pleural effusion; J44.9 Chronic obstructive pulmonary disease, unspecified; Z66 Do not resuscitate; M10.9 Gout, unspecified; E03.9 Hypothyroidism, unspecified; K44.9 Diaphragmatic hernia without obstruction or gangrene; E78.5 Hyperlipidemia, unspecified; N40.1 Benign prostatic hyperplasia with lower urinary tract symptoms; R33.8 Other retention of urine; I12.9 Hypertensive chronic kidney disease with stage 1 through stage 4 chronic kidney disease, or unspecified chronic kidney disease; N18.2 Chronic kidney disease, stage 2 (mild); D63.1 Anemia in chronic kidney disease; I25.10 Atherosclerotic heart disease of native coronary artery without angina pectoris; E11.22 Type 2 diabetes mellitus with diabetic chronic kidney disease; Z95.5 Presence of coronary angioplasty implant and graft; Z68.25 Body mass index [BMI] 25.0-25.9, adult; Z90.49 Acquired absence of other specified parts of digestive tract; Z88.0 Allergy status to penicillin
CPT/HCPCS: 36415; 36416; 36430; 49082; 51703; 71045; 71260; 74177; 80048; 80053; 81003; 81015; 82150; 82533; 82550; 82945; 83605; 83615; 83690; 83880; 83986; 84157; 84443; 84478; 84484; 85025; 85060; 85610; 85730; 86850; 86900; 86901; 87040; 87070; 87086; 87116; 87205; 87206; 88112; 88305; 88341; 88342; 88360; 89051; 93005; 93306; 96361; 96365; 96375; C1729; J0690; J0696; J1642; J1644; J1815; J1940; J1956; J2001; J2704; J2920; J3010; J3490; J7512; P9016; Q9966